=== PATIENT | female | born 1945 | race Caucasian/White ===

== ENCOUNTER → 2017-03-12 | Outpatient (CLI) | payer OTHER ==
[~2017-03-12] MED LIST: ADVIN25050 INH; ALPR-411 PO; AREDS PO; ASPI325T39 PO; CALC600T9 PO; CLR10 PO; GLIP-199 PO; LIVALO PO; LOSARTAN PO; REPA2TAB13 PO; TRIA1SPR4 NAE; VNTHFA/IN INH
--- NOTE | 2017-03-13 09:05 | MAMMOGRAPHY REPORT ---
BILATERAL DIGITAL SCREENING MAMMOGRAM WITH CAD: 03/12/2017 CLINICAL HISTORY: Routine screening. Patient has no complaints. TECHNIQUE: Current study was also evaluated with a Computer Aided Detection (CAD) system. Bilateral CC and MLO views were obtained. COMPARISON: Prior outside mammograms dated 01/23/2016, 01/02/2015, 09/27/2013, 04/13/2013, 03/10/2013, 2011 from [facility]. BREAST COMPOSITION: There are scattered areas of fibroglandular density in both breasts. FINDINGS: There is a newly visualized possible round 10 mm mass within the left breast at 12:00, for which spot compression tomosynthesis views and possible breast ultrasound are recommended for furthe r evaluation. This may represent a cyst. The remainder of both breasts are stable compared to prior exams, without suspicious masses, calcific ations, or areas of architectural distortion noted. Bilateral benign-appearing calcifications are no t significantly changed. A biopsy marker clip is again noted within the left upper outer quadrant. Bilateral asymmetries are stable. IMPRESSION: ACR BI-RADS CATEGORY 0: INCOMPLETE EVALUATION: NEED ADDITIONAL IMAGING EVALUATION Left 12:00 breast mass, for which additional imaging evaluation is recommended. The patient will be called to schedule an appointment. Approximately 10% of breast cancers are not detected with mammography. A negative mammographic report should not delay biopsy if a clinically suggestive mass is present. Sherita Almonte M.D. /:03/13/2017 07:39:35 Food Sampler: Yara SOSA(R)(Tato)(BD), [facility] letter sent: Addl Imaging 0 BI-RADS Code: ACR BI-RADS Category 0: Incomplete Evaluation: Need Additional Imaging Evaluation
== END | disposition home or self-care (01) ==
LOC: C.MAMM 13:29
PROVIDERS: ATTEND Family Medicine
DX: Z12.31 Encounter for screening mammogram for malignant neoplasm of breast (principal); N63 Unspecified lump in breast

== ENCOUNTER → 2017-03-19 | Day surgery (SDC) | payer OTHER ==
[2017-03-13 08:15] VITALS: BMI 29.0
[~2017-03-19] VITALS: Ht 165.1 cm; Wt 79.5 kg
[~2017-03-19] MED LIST changes: +LIDOCAINE HCL 2% 2 ML VIAL (20MG/ML) ONE; +PROPOFOL IV EMULSION 10 MG/ML 20 ML VIAL IV ONE; +REPA2TAB12 PO; -REPA2TAB13 PO; +SODIUM CHLORIDE 0.9% 500ML 500 ML IV ONE
[2017-03-19 07:57] VITALS: Ht 165.1 cm; Wt 79.5 kg
--- NOTE | 2017-03-19 08:46 | Endo History and Physical ---
History & Physical Date of Service: Mar 19, 2017. Chief Complaint: 5 year follow-up colonoscopy Referring Physician: dr. Griselda Howard History of Present Illness 71 yo CF who presents for colonoscopy secondary to history of colon polyps. Past Surgical History Hx Cardiac Surgery: No Hx Internal Defibrillator: No Hx Abdominal Surgery: Yes (GB SURG) Hx of Implantable Prosthesis: No Hx Post-Op Nausea and Vomiting: No Hx Cancer Surgery: No Hx Thoracic Surgery: No Hx Orthopedic: Yes (R TKA, L TKA) Family History None Social History Smoking Status: Never Smoker Hx Substance Use: No Hx Alcohol Use: No Allergies Coded Allergies: Atorvastatin (Verified Allergy, Unknown, MUSCLE CRAMPS,ACHES, 03/19/17) Food (Verified Allergy, Unknown, SEASONED BREADING ON FOOD-EYES SWELLED SHUT,THROAT SWELLING, 03/19/17) Penicillins (Verified Allergy, Unknown, HIVES, 03/19/17) Current Medications Reported Home Medications Medications Dose Route/Sig Max Daily Dose Days Date Category Calcium + D (Calcium Carbonate-Vitamin D) 1 Tab Tab 1 Tab PO BID 03/13/17 Reported [Areds] 1 Tab PO BID 03/13/17 Reported Nasacort Allergy 24Hr (Triamcinolone Acetonide (Nasal) 55 Mcg/Act Spr 2 Sprays BAKARI BID 03/13/17 Reported Advair Diskus 250-50 Mcg/Dose (Fluticasone Prop/Salmeterol) 14 Puff/1 Inhaler Aerp 2 Puffs INH BID 03/13/17 Reported Ventolin Hfa (Albuterol) 200 Puffs/15200 Mcg Aers 2 Puffs INH Q6H PRN 03/13/17 Reported Aspirin Ec (Aspirin) 325 Mg Tab 325 Mg PO QAM 03/13/17 Reported [Livalo] 1 Mg PO HS 03/13/17 Reported [Losartan] 50 Mg PO QAM 03/13/17 Reported Claritin (Loratadine) 10 Mg Tab 10 Mg PO QAM 03/13/17 Reported Prandin (Repaglinide) 2 Mg Tab 2 Mg PO AC 03/13/17 Reported Glipizide Er (Glipizide) 10 Mg Tab 1 Tab PO BID 90 03/13/17 Reported Vital Signs Weight (Kilograms): 79.55 Height (Feet): 5 Height (Inches): 5 Date Time Temp Pulse Resp B/P (MAP) Pulse Ox O2 Delivery O2 Flow Rate FiO2 03/19/17 08:11 36.6 66 20 140/77 (98) 96 Room Air Physical Exam General Appearance: WD/WN, no apparent distress Respiratory/Chest: Auscultation: breath sounds normal Cardiovascular: Heart Auscultation: RRR Abdomen: Bowel Sounds: normal Inspection & Palpation: soft, non-distended, no tenderness, guarding & rebound Assessment and Plan Assessment: 71 yo CF who presents for colonoscopy secondary to history of colon polyps. Plan: Proceed with colonoscopy
--- NOTE | 2017-03-19 09:19 | GI REPORT ---
Procedure Date: 03/19/2017 8:17 AM Procedure: Colonoscopy Indications: High risk colon cancer surveillance: Personal history of colonic polyps Medicines: Monitored Anesthesia Care Complications: No immediate complications. Estimated Blood Loss: Estimated blood loss: none. Procedure: Pre-Anesthesia Assessment: - Prior to the procedure, a History and Physical was performed, and patient medications and allergies were reviewed. The patient's tolerance of previous anesthesia was also reviewed. The risks and benefits of the procedure and the sedation options and risks were discussed with the patient. All questions were answered, and informed consent was obtained. Prior Anticoagulants: The patient has taken aspirin, last dose was 5 days prior to procedure. ASA Grade Assessment: II - A patient with mild systemic disease. After reviewing the risks and benefits, the patient was deemed in satisfactory condition to undergo the procedure. After I obtained informed consent, the scope was passed under direct vision. Throughout the procedure, the patient's blood pressure, pulse, and oxygen saturations were monitored continuously. The scope was introduced through the anus and advanced to the terminal ileum. The colonoscopy was performed without difficulty. The patient tolerated the procedure well. The quality of the bowel preparation was good. The terminal ileum, ileocecal valve, appendiceal orifice, and rectum were photographed. Findings: A 3 mm polyp was found in the cecum. The polyp was sessile. The polyp was removed with a cold biopsy forceps. Resection and retrieval were complete. A 5 mm polyp was found in the sigmoid colon. The polyp was sessile. The polyp was removed with a hot snare. Resection and retrieval were complete. Multiple small-mouthed diverticula were found in the sigmoid colon. Non-bleeding internal hemorrhoids were found during retroflexion. The hemorrhoids were small. Impression: - One 3 mm polyp in the cecum, removed with a cold biopsy forceps. Resected and retrieved. - One 5 mm polyp in the sigmoid colon, removed with a hot snare. Resected and retrieved. - Diverticulosis in the sigmoid colon. - Non-bleeding internal hemorrhoids. Recommendation: - Resume previous diet. - Continue present medications. - Repeat colonoscopy for surveillance based on pathology results. - Return to primary care physician as previously scheduled. Koby Maynard DO 03/19/2017 9:19:25 AM This report has been signed electronically. Note Initiated On: 03/19/2017 8:17 AM I attest to the content of the Intraoperative Record and orders documented therein, exceptions below
--- NOTE | 2017-03-19 09:21 | Discharge Instructions ---
Endoscopy Patient Instructions Date / Procedure(s) Performed Mar 19, 2017. Colonoscopy Allergy Information Coded Allergies: Atorvastatin (Verified Allergy, Unknown, MUSCLE CRAMPS,ACHES, 03/19/17) Food (Verified Allergy, Unknown, SEASONED BREADING ON FOOD-EYES SWELLED SHUT,THROAT SWELLING, 03/19/17) Penicillins (Verified Allergy, Unknown, HIVES, 03/19/17) Discharge Date / Findings Mar 19, 2017. Colon polyps Diverticulosis Internal hemorrhoids Medication Instructions Stopped Medication(s): stopped asa told 5 days before OK to resume all medications today as prescribed Reported Home Medications Medications Dose Route/Sig Max Daily Dose Days Date Category Calcium + D (Calcium Carbonate-Vitamin D) 1 Tab Tab 1 Tab PO BID 03/13/17 Reported [Areds] 1 Tab PO BID 03/13/17 Reported Nasacort Allergy 24Hr (Triamcinolone Acetonide (Nasal) 55 Mcg/Act Spr 2 Sprays BAKARI BID 03/13/17 Reported Advair Diskus 250-50 Mcg/Dose (Fluticasone Prop/Salmeterol) 14 Puff/1 Inhaler Aerp 2 Puffs INH BID 03/13/17 Reported Ventolin Hfa (Albuterol) 200 Puffs/95748 Mcg Aers 2 Puffs INH Q6H PRN 03/13/17 Reported Aspirin Ec (Aspirin) 325 Mg Tab 325 Mg PO QAM 03/13/17 Reported [Livalo] 1 Mg PO HS 03/13/17 Reported [Losartan] 50 Mg PO QAM 03/13/17 Reported Claritin (Loratadine) 10 Mg Tab 10 Mg PO QAM 03/13/17 Reported Prandin (Repaglinide) 2 Mg Tab 2 Mg PO AC 03/13/17 Reported Glipizide Er (Glipizide) 10 Mg Tab 1 Tab PO BID 90 03/13/17 Reported Provider Instructions Activity Restrictions - No exercising or heavy lifting for 24 hours. - Do not drink alcohol the day of the procedure. - Do not drive a car or operate machinery until the day after the procedure. - Do not make any important decisions or sign important papers in 24 hours after the procedure. Following Day: - Return to full activity which may include returning to work/school. Diet Start your diet with liquids and light foods (jello, soup, juice, toast). Then eat your usual diet if not nauseated. Treatment For Common After Affects For mild abdominal pain, bloating, or excessive gas: - Rest - Eat lightly - Lie on right side Follow-Up Information Follow-up with dr. Griselda Howard as scheduled Anesthesia Information What You Should Know You have had a procedure that required some medicine to reduce anxiety and discomfort. This treatment is called moderate sedation. After receiving the treatment, you may be sleepy, but you will be able to breathe on your own. The effects of the treatment may last for several hours. Follow these instructions along with Activity/Diet recommendations noted above: * Do NOT do anything where dizziness or clumsiness would be dangerous. * Rest quietly at home today, then you can be up and about tomorrow. * Have a responsible person stay with you the rest of today. * You may have had an I.V. today. If so, you may take the dressing off later today. Recommendations Call your doctor if: * Trouble breathing * Continuous vomiting for more than 24 hours * Temperature above 101 degrees * Severe abdominal pain or bloating * Pain not relieved by pain medicine ordered * There is increased drainage or redness from any incision * A large amount of rectal bleeding greater than 2-3 tablespoons. (If you had a polyp/s removed or have hemorrhoids, a small amount of blood - from the rectum is to be expected.) * You have any unanswered questions or concerns. IN THE EVENT OF A SERIOUS EMERGENCY, GO TO THE NEAREST EMERGENCY ROOM Your discharge instructions were prepared by provider Koby Maynard. Patient Instructions Signature Page Alexa Cristina Patient (or Guardian) Signature/Date: I have read and understand the instructions given to me by my caregivers. Caregiver/RN/Doctor Signature/Date: The above-named patient and/or guardian has received patient instructions on this date. + Original Patient Signature Page (only) stays with chart. Please make copy for patient.
[2017-03-19 09:40] VITALS: BP 128/84; PULSE 64; O2SAT 98
--- NOTE | 2017-03-19 10:07 | Anesthesiology Progress Note ---
Anesthesia Post Op Note Date & Time Mar 19, 2017 at 10:07 Vital Signs Pain Intensity: 0 Vital Signs Past 12 Hours Date Time Temp Pulse Resp B/P (MAP) Pulse Ox O2 Delivery O2 Flow Rate FiO2 03/19/17 09:40 64 20 128/84 (99) 98 Room Air 03/19/17 09:25 73 20 123/76 (92) 95 Room Air 03/19/17 09:10 75 16 101/56 (71) 94 Room Air 03/19/17 08:11 36.6 66 20 140/77 (98) 96 Room Air Notes Mental Status: alert / awake / arousable, participated in evaluation Pt Amnestic to Procedure: Yes Nausea / Vomiting: adequately controlled Pain: adequately controlled Airway Patency, RR, SpO2: stable & adequate BP & HR: stable & adequate Hydration State: stable & adequate Anesthetic Complications: no major complications apparent
== END | disposition home or self-care (01) ==
LOC: C.GI 07:41
PROVIDERS: ATTEND Internal Medicine
DX: Z12.11 Encounter for screening for malignant neoplasm of colon (principal); D12.5 Benign neoplasm of sigmoid colon; K57.30 Diverticulosis of large intestine without perforation or abscess without bleeding; K64.8 Other hemorrhoids; Z87.19 Personal history of other diseases of the digestive system; Z90.49 Acquired absence of other specified parts of digestive tract; Z96.653 Presence of artificial knee joint, bilateral; Z79.82 Long term (current) use of aspirin; E11.9 Type 2 diabetes mellitus without complications

== ENCOUNTER → 2017-03-21 | Outpatient (CLI) | payer OTHER ==
[~2017-03-21] MED LIST changes: -ALPR-411 PO; -LIDOCAINE HCL 2% 2 ML VIAL (20MG/ML) ONE; -PROPOFOL IV EMULSION 10 MG/ML 20 ML VIAL IV ONE; -REPA2TAB12 PO; +REPA2TAB13 PO; -SODIUM CHLORIDE 0.9% 500ML 500 ML IV ONE
--- NOTE | 2017-03-31 09:12 | MAMMOGRAPHY REPORT ---
UNILATERAL LEFT DIGITAL DIAGNOSTIC MAMMOGRAM TOMOSYNTHESIS AND TARGETED LEFT ULTRASOUND: 03/21/2017 CLINICAL HISTORY: Callback from screening mammogram for left breast mass. TECHNIQUE: Breast tomosynthesis in addition to standard 2D mammography was performed. Spot compress ion left CC and MLO 2-D and tomosynthesis images were obtained. COMPARISON: Comparison is made to exams dated: 03/12/2017 mammogram - [facility], mammogram, 01/02/2015 mammogram, 09/27/2013 mammogram, 04/13/2013 mammogram, and 03/10/2013 [facility]og [facility]. BREAST COMPOSITION: There are scattered areas of fibroglandular density in the left breast. FINDINGS: Spot compression views demonstrate a persistent oval partially circumscribed and partially obscured 10 mm mass in the left breast at 12:00, best seen on the cc tomosynthesis images. Targeted ultrasound was performed of the left 12:00 breast in the region of the mammographic mass. I n the left breast at 12:00, 4 cm from the nipple, there is an oval anechoic circumscribed mass which measures 7 x 9 x 3 mm. This corresponds with the mammographic mass and is consistent with a benign c yst. Incidentally noted is mild duct ectasia in the left subareolar breast. IMPRESSION: ACR BI-RADS CATEGORY 2: BENIGN, TARGETED ULTRASOUND ACR BI-RADS CATEGORY 2: BENIGN The mammographic mass corresponds with a benign 9 mm simple cyst in the left breast at 12:00 on ultra sound. There is no mammographic or targeted sonographic evidence of malignancy. A 1 year screening m ammogram is recommended. The patient has been verbally notified of the results. Approximately 10% of breast cancers are not detected with mammography. A negative mammographic report should not delay biopsy if a clinically suggestive mass is present. Sherita Almonte M.D. /:03/21/2017 10:45:59 Able Seaman: Verito Davis, [facility] letter sent: Normal 1/2 BI-RADS Code: ACR BI-RADS Category 2: Benign Ultrasound BI-RADS: ACR BI-RADS Category 2: Benign
== END | disposition home or self-care (01) ==
LOC: C.MAMM 10:10
PROVIDERS: ATTEND Family Medicine
DX: N60.02 Solitary cyst of left breast (principal)

== ENCOUNTER → 2017-11-18 | Day surgery (SDC) | payer OTHER ==
[2017-10-21 10:43] VITALS: Ht 162.6 cm; Wt 79.5 kg
[~2017-11-18] VITALS: Ht 162.6 cm; Wt 79.5 kg
[~2017-11-18] MED LIST changes: +500ML BSS 0.3ML EPI 1:1000PF IRRIG ONE; +ACETAMINOPHEN 325 MG TAB PO PRN; +AMVISC PLUS 0.8ML SYRINGE INT OCU ONE; -AREDS PO; +ATROPINE SULFATE 0.1 MG/ML 5ML SYR IV PRN; +BSS FLUSH ONE; +CALC500C70 PO; -CALC600T9 PO; -CLR10 PO; +DULA1INJ SC; +EpHEDrine SULFATE INJ 50 MG/ML AMP IV PRN; +EpINEphrine INJ 1MG/ML AMP 1 MG/ML AMP ONE; -GLIP-199 PO; +LACTATED RINGER'S 1000ML 500 ML IV SCH; +LIDOCAINE 3.5% OPH GEL PER APPLICATION CHARGE ONE; +LIDOCAINE HCL 1% MPF 2 ML VIAL ONE; -LIVALO PO; +LORA5TAB3 PO; +LOSA50TA6 PO; -LOSARTAN PO; +MIDAZOLAM HCL 1 MG/ML 2ML VIAL ONE; +MULTCAP33 PO; +MULTTAB58 PO; +NAPR1CAP12 PO; +OMEG10007 PO; +PITA1TAB PO; +POVIDONE-IODINE OP SOLN 30 ML BTL ONE; +PROPARACAINE 0.5% OP SOLN PER DROP CHARGE OPR SCH; -REPA2TAB13 PO; +TOBRAMYCIN/DEXAMETHASONE OPH OINT PER APPLN CHARGE ONE
[2017-11-18] MEDS: PHENYLEPHRINE HCL 2.5% OP SOLN PER DROP CHARGE OPR SCH ×2 (08:21→08:26)
[2017-11-18] MEDS: TROPICAMIDE 1% OP SOLN PER DROP CHARGE OPR SCH ×2 (08:22→08:27)
[2017-11-18] MEDS: CYCLOPENTOLATE HCL 1% OP SOLN PER DROP CHARGE OPR SCH ×2 (08:23→08:28)
[2017-11-18] MEDS: KETOROLAC 0.5% OP SOLN PER DROP CHARGE OPR SCH ×2 (08:24→08:29)
[2017-11-18] MEDS: GATIFLOXACIN OP SOLN PER DROP CHARGE OPR SCH ×2 (08:25→08:35)
--- NOTE | 2017-11-18 08:44 | History & Physical Bridge - SC ---
H&P Re-Evaluation Bridge Note: I have examined the patient, reviewed the History & Physical and in the interval since the performance of the History & Physical I have noted the following changes of clinical significance: No changes noted
--- NOTE | 2017-11-18 09:19 | [facility] Operative Report ---
Operative Report Date of Service Nov 18, 2017. Operative Report 1. PREOPERATIVE DIAGNOSIS: Cataract of the right eye. 2. POSTOPERATIVE DIAGNOSIS: Same. 3. PROCEDURE: Phacoemulsification with intraocular lens implantation of the right eye. SURGEON: Dr. Rodrigo Pabon. ANESTHESIA: Topical Lidocaine gel, 1% Non- Preserved intracameral Lidocaine, and monitored intravenous sedation. INDICATIONS FOR THE PROCEDURE: The patient is a 71 - year-old female with a history of cataract of the right eye causing significant visual impairment. The details of the proposed procedure were explained to the patient who asked appropriate questions and following discussion of all risks, benefits and alternatives agreed to have the procedure done. 4. OPERATION AND FINDINGS: DESCRIPTION OF PROCEDURE: After informed consent was obtained, the patient was brought to the Operating Room at the [facility]. The patient was placed in a supine position and then the right eye was prepped and draped in the usual sterile fashion for intraocular surgery. A drop of topical Lidocaine gel was placed in the operative eye. A wire lid speculum was then placed in the fornices. A corneal paracentesis was then created temporally. The Non-Preserved Lidocaine was then instilled into the anterior chamber. The anterior chamber was then pressurized with viscoelastic. A 2.0 mm clear corneal incision was then created temporally. A cystotome was inserted into the anterior chamber and used to create a tear in the anterior lens capsule. This capsular tear was then used to create a small flap and the flap was dragged in a counterclockwise direction in order to create a continuous curvilinear capsulorrhexis. Hydrodissection was accomplished with balanced salt solution. Phacoemulsification of the lens nucleus was then performed in a standard [id number] technique. The phaco time was 18 seconds with an average power of 9 %. The remaining cortical material was removed using irrigation aspiration. The capsular bag was then filled with viscoelastic. A Bausch [employer] Lomb MI60L +21.5 diopters lens was then loaded into the injector and injected into the capsular bag. The remaining viscoelastic was removed with the irrigation aspiration handpiece. The wound was hydrated and then checked and found to be watertight. The intraocular pressure was checked and found to be adequate. The wire lid speculum was removed and the patient's face was cleaned and dried. TobraDex ointment was placed in the inferior fornix. The patient was discharged to the Recovery Room having tolerated the procedure well. There were no complications. The patient will be seen tomorrow in the office for follow-up. I attest to the content of the Intraoperative Record and any orders documented therein. Any exceptions are noted below.
--- NOTE | 2017-11-18 09:20 | Discharge Instructions-SurgCtr ---
Discharge Instructions Date of Service Nov 18, 2017. Visit Reason for Visit: Cataract Right Eye Discharge Discharge Diagnosis / Problem: cataract Discharge Goals Goal(s): Improve function Activity Recommendations Activity Limitations: per Instructions/Follow-up section Anesthesia . Post Anesthesia Instructions: If you have had General Anesthesia or IV Sedation: * Do not drive today. * Resume driving when surgeon permits. * Do not make important decisions or sign legal documents today. * Call surgeon for: 1. Temperature elevations greater than 101 degrees F. 2. Uncontrollable pain. 3. Excessive bleeding. 4. Persistent nausea and vomiting. 5. Medication intolerance (nausea, vomiting or rash). * For nausea and vomiting use only clear liquids such as: tea, soda, bouillon until nausea subsides, then gradually increase diet as tolerated. * If you have any concerns or questions, call your surgeon's office. If physician is unavailable and it is an emergency, call 911 or go to the nearest emergency room. . Diet Recommendations Home Diet: resume previous diet Procedures Procedures Performed: Right Cataract Phacoemulsification With Intraocular Lens Implant Pending Studies Studies pending at discharge: no Medical Emergencies . Who to Call and When: Medical Emergencies: If at any time you feel your situation is an emergency, please call 911 immediately. . Non-Emergent Contact Non-Emergency issues call your: Local [employer] Tanker Driver . . "Provider Documentation" section prepared by Rodrigo Pabon. .
[2017-11-18 09:21] VITALS: TEMP 36.5
--- NOTE | 2017-11-18 09:24 | Anesthesia Progress Nt - [facility] ---
Anesthesia Post Op Note Date & Time Nov 18, 2017 at 09:24 Vital Signs Pain Intensity: 0 Vital Signs Past 12 Hours Date Time Temp Pulse Resp B/P (MAP) Pulse Ox O2 Delivery O2 Flow Rate FiO2 11/18/17 08:12 36.8 64 18 160/84 (109) 95 Room Air Notes Mental Status: alert / awake / arousable, participated in evaluation Pt Amnestic to Procedure: Yes Nausea / Vomiting: adequately controlled Pain: adequately controlled Airway Patency, RR, SpO2: stable & adequate BP & HR: stable & adequate Hydration State: stable & adequate Anesthetic Complications: no major complications apparent
[2017-11-18 09:55] VITALS: BP 168/84; PULSE 60; O2SAT 97
== END | disposition home or self-care (01) ==
LOC: X.SURG 07:34
PROVIDERS: ATTEND Ophthalmology
DX: H26.9 Unspecified cataract (principal); E11.65 Type 2 diabetes mellitus with hyperglycemia; E78.2 Mixed hyperlipidemia; I10 Essential (primary) hypertension; J45.909 Unspecified asthma, uncomplicated; Z86.718 Personal history of other venous thrombosis and embolism; Z79.899 Other long term (current) drug therapy; Z79.82 Long term (current) use of aspirin; Z79.84 Long term (current) use of oral hypoglycemic drugs

== ENCOUNTER → 2017-12-02 | Day surgery (SDC) | payer OTHER ==
[2017-11-20 10:48] VITALS: Ht 162.6 cm; Wt 79.5 kg
[~2017-12-02] VITALS: Ht 162.6 cm; Wt 79.5 kg
[~2017-12-02] MED LIST changes: +OCUCOAT 1 ML SOLN IO ONE; +PROPARACAINE 0.5% OP SOLN PER DROP CHARGE OPL SCH; -PROPARACAINE 0.5% OP SOLN PER DROP CHARGE OPR SCH
[2017-12-02] MEDS: PHENYLEPHRINE HCL 2.5% OP SOLN PER DROP CHARGE OPL SCH ×2 (09:09→09:17)
[2017-12-02] MEDS: TROPICAMIDE 1% OP SOLN PER DROP CHARGE OPL SCH ×2 (09:12→09:18)
[2017-12-02] MEDS: CYCLOPENTOLATE HCL 1% OP SOLN PER DROP CHARGE OPL SCH ×2 (09:14→09:19)
[2017-12-02] MEDS: KETOROLAC 0.5% OP SOLN PER DROP CHARGE OPL SCH ×2 (09:15→09:21)
[2017-12-02] MEDS: GATIFLOXACIN OP SOLN PER DROP CHARGE OPL SCH ×2 (09:16→09:28)
--- NOTE | 2017-12-02 10:12 | [facility] Operative Report ---
Operative Report Date of Service Dec 02, 2017. Operative Report 1. PREOPERATIVE DIAGNOSIS: Cataract of the left eye. 2. POSTOPERATIVE DIAGNOSIS: Same. 3. PROCEDURE: Phacoemulsification with intraocular lens implantation of the left eye. SURGEON: Dr. Rodrigo Pabon. ANESTHESIA: Topical Lidocaine gel, 1% Non- Preserved intracameral Lidocaine, and monitored intravenous sedation. INDICATIONS FOR THE PROCEDURE: The patient is a 72 - year-old female with a history of cataract of the left eye causing significant visual impairment. The details of the proposed procedure were explained to the patient who asked appropriate questions and following discussion of all risks, benefits and alternatives agreed to have the procedure done. 4. OPERATION AND FINDINGS: DESCRIPTION OF PROCEDURE: After informed consent was obtained, the patient was brought to the Operating Room at the [facility]. The patient was placed in a supine position and then the left eye was prepped and draped in the usual sterile fashion for intraocular surgery. A drop of topical Lidocaine gel was placed in the operative eye. A wire lid speculum was then placed in the fornices. A corneal paracentesis was then created temporally. The Non-Preserved Lidocaine was then instilled into the anterior chamber. The anterior chamber was then pressurized with viscoelastic. A 2.0 mm clear corneal incision was then created temporally. A cystotome was inserted into the anterior chamber and used to create a tear in the anterior lens capsule. This capsular tear was then used to create a small flap and the flap was dragged in a counterclockwise direction in order to create a continuous curvilinear capsulorrhexis. Hydrodissection was accomplished with balanced salt solution. Phacoemulsification of the lens nucleus was then performed in a standard [id number] technique. The phaco time was 17 seconds with an average power of 14 %. The remaining cortical material was removed using irrigation aspiration. The capsular bag was then filled with viscoelastic. A Bausch & Lomb MI60L +22.0 diopters lens was then loaded into the injector and injected into the capsular bag. The remaining viscoelastic was removed with the irrigation aspiration handpiece. The wound was hydrated and then checked and found to be watertight. The intraocular pressure was checked and found to be adequate. The wire lid speculum was removed and the patient's face was cleaned and dried. TobraDex ointment was placed in the inferior fornix. The patient was discharged to the Recovery Room having tolerated the procedure well. There were no complications. The patient will be seen tomorrow in the office for follow-up. I attest to the content of the Intraoperative Record and any orders documented therein. Any exceptions are noted below.
--- NOTE | 2017-12-02 10:13 | Discharge Instructions-SurgCtr ---
Discharge Instructions Date of Service Dec 02, 2017. Visit Reason for Visit: Cataract Left Eye Discharge Discharge Diagnosis / Problem: cataract Discharge Goals Goal(s): Improve function Activity Recommendations Activity Limitations: per Instructions/Follow-up section Anesthesia . Post Anesthesia Instructions: If you have had General Anesthesia or IV Sedation: * Do not drive today. * Resume driving when surgeon permits. * Do not make important decisions or sign legal documents today. * Call surgeon for: 1. Temperature elevations greater than 101 degrees F. 2. Uncontrollable pain. 3. Excessive bleeding. 4. Persistent nausea and vomiting. 5. Medication intolerance (nausea, vomiting or rash). * For nausea and vomiting use only clear liquids such as: tea, soda, bouillon until nausea subsides, then gradually increase diet as tolerated. * If you have any concerns or questions, call your surgeon's office. If physician is unavailable and it is an emergency, call 911 or go to the nearest emergency room. . Diet Recommendations Home Diet: resume previous diet Procedures Procedures Performed: Left Cataract Phacoemulsification With Intraocular Lens Implant Pending Studies Studies pending at discharge: no Medical Emergencies . Who to Call and When: Medical Emergencies: If at any time you feel your situation is an emergency, please call 911 immediately. . Non-Emergent Contact Non-Emergency issues call your: Pin Drafter Operator . . "Provider Documentation" section prepared by Rodrigo Pabon. .
[2017-12-02 10:15] VITALS: TEMP 36.7
[2017-12-02 10:36] VITALS: BP 156/85; PULSE 70; O2SAT 97
--- NOTE | 2017-12-02 10:43 | Anesthesia Progress Nt - [facility] ---
Anesthesia Post Op Note Date & Time Dec 02, 2017 at 10:42 Vital Signs Vital Signs Past 12 Hours Date Time Temp Pulse Resp B/P (MAP) Pulse Ox O2 Delivery O2 Flow Rate FiO2 12/02/17 10:36 70 16 156/85 (108) 97 Room Air 12/02/17 10:15 36.7 67 16 139/74 (95) 95 Room Air 12/02/17 08:59 37.0 66 18 157/88 (111) 96 Room Air Notes Mental Status: alert / awake / arousable, participated in evaluation Pt Amnestic to Procedure: Yes Nausea / Vomiting: adequately controlled Pain: adequately controlled Airway Patency, RR, SpO2: stable & adequate BP & HR: stable & adequate Hydration State: stable & adequate Anesthetic Complications: no major complications apparent
== END | disposition home or self-care (01) ==
LOC: X.SURG 08:22
PROVIDERS: ATTEND Ophthalmology
DX: H26.9 Unspecified cataract (principal); E78.2 Mixed hyperlipidemia; E11.9 Type 2 diabetes mellitus without complications; I10 Essential (primary) hypertension; F41.9 Anxiety disorder, unspecified; E78.00 Pure hypercholesterolemia, unspecified; J44.9 Chronic obstructive pulmonary disease, unspecified; M19.90 Unspecified osteoarthritis, unspecified site; E66.9 Obesity, unspecified; Z86.718 Personal history of other venous thrombosis and embolism; Z79.82 Long term (current) use of aspirin; Z88.0 Allergy status to penicillin; Z88.8 Allergy status to other drugs, medicaments and biological substances; Z91.018 Allergy to other foods; Z90.49 Acquired absence of other specified parts of digestive tract; Z90.89 Acquired absence of other organs; Z96.653 Presence of artificial knee joint, bilateral; Z98.41 Cataract extraction status, right eye

== ENCOUNTER 2018-09-24 12:15 | Observation (INO) ==
[2018-09-24] MEDS ORDERED: ASPIRIN CHEW 324 MG PO STA (12:41)
[2018-09-24] MEDS ORDERED: SODIUM CHLORIDE 0.9% 500 ML IV SCH (12:45)
[2018-09-24] MEDS: NITROGLYCERIN SL 0.4 MG/TAB TAB SL PRN ×2 (12:46→13:15)
[2018-09-24 12:50] LABS: Basophils # (auto) 0.05 K/uL (0-0.2); Basophils % (auto) 0.5 %; Eosinophils # (auto) 0.32 K/uL (0-0.5); Eosinophils % (auto) 3.3 %; Hematocrit (blood only) 44.4 % (37-47); Hemoglobin 15.2 g/dL (12.0-16.0); Immature Granulocytes # (auto) 0.04 K/uL (0.00-0.02); Immature Granulocytes % (auto) 0.4 %; Lymphocytes # (auto) 2.83 K/uL (1.2-3.4); Lymphocytes % (auto) 28.9 %; Mean Corpuscular Hgb Conc 34.2 g/dL (32-36); Mean Corpuscular Volume 90.8 fL (80-100); Monocytes # (auto) 0.77 K/uL (0.11-0.59); Monocytes % (auto) 7.9 %; Neutrophils # (auto) 5.79 K/uL (1.4-6.5); Platelet Count 282 K/uL (130-400); RDW Coefficient of Variation 12.3 % (11.5-14.5); RDW Standard Deviation 40.5 fL (36.4-46.3); Red Blood Count 4.89 M/uL (4.2-5.4)
[2018-09-24 13:01] LABS: Blood Urea Nitrogen 13 mg/dl (7-18); Calcium 10.3 mg/dl (8.5-10.1); Carbon Dioxide 28 mmol/L (21-32); Chloride 100 mmol/L (98-107); Creatinine Clr Calc Pharmacy 68.8 ml/min; Est GFR (African American) 95.1; Est GFR (Non-African American) 82.1; Glucose 153 mg/dl (70-99); Potassium 3.7 mmol/L (3.5-5.1); Sodium 136 mmol/L (136-145)
[2018-09-24 13:03] LABS: Partial Thromboplastin Ratio 1.1; Partial Thromboplastin Time 27.3 Seconds (21.0-31.0); Prothrombin Time 10.3 Seconds (9.0-12.0)
[2018-09-24 13:06] LABS: Troponin I < 0.015 ng/ml (0-0.045)
--- NOTE | 2018-09-24 14:48 | XRay Report ---
XR chest 2V routine CLINICAL HISTORY: Chest pain. COMPARISON STUDY: No previous studies for comparison. FINDINGS: Incidental note is made of cholecystectomy clips. Lung volumes are normal. There is no pneu mothorax or pleural effusion. There is no consolidation or evidence for pulmonary edema. There is mil d cardiomegaly. There is a suspected old right humeral neck deformity. IMPRESSION: No acute cardiopulmonary findings. Electronically signed by: Karlos Membreno M.D. 09/24/2018 2:39 PM
--- NOTE | 2018-09-24 15:31 | History & Physical Report ---
Date of Service September 24, 2018 Assessment & Plan (1) Chest pain: History concerning for underlying cardiac pathology so patient being admitted for observation on telemetry - Serial cardiac enzymes - Repeat EKG in AM - Consult cardiology for possible inpatient stress tomorrow unless condition changes overnight - will make NPO after midnight (2) Asthma: Stable at present - pt reports breathing is at baseline - Continue Advair 250/50 2 puffs BID - PRN albuterol for SOB/wheezing (3) Dyslipidemia: - Check lipid panel in AM - Continue pitavastatin 1 mg QHS (4) Hx of deep venous thrombosis: - Continue aspirin 325 mg daily as taken at home - SubQ heparin and SCDs for DVT prophylaxis while admitted (5) HTN (hypertension): - Continue losartan for now and monitor BP (6) Diabetes: - Check A1c in AM - BSG ACHS - Hold home diabetic meds - will cover with SSI while admitted - Diabetic diet Plan: Plan - Susan Contreras PA-C: Patient seen and reviewed with collaborating physician, Dr. Diaz. Plan of care discussed and as outlined above. Follow enzymes and EKG - consider stress test if all negative. Daryl Contreras PA-C History of Present Illness Primary Care Provider: PCP - Stacy Rai This is a 72 y/o female with a history of HTN, dyslipidemia and DM who presents to the ED today with left-sided chest pain x 3-4 days, worse with exertion. Pt reports she started with left chest pressure and pain 3-4 days ago - at times the pain radiates into her left arm and left neck although not constantly. The pain is worse with exertion although incompletely relieved by rest. She does have associated dyspnea on exertion but no pain with inspiration, wheezing, orthopnea or PND. No palpitations or syncope. Denies peripheral edema. She denies ever have pain like this previously. No prior cardiac history or work- up that patient can recall. Her symptoms have been worsening in severity and she now has associated weakness, fatigue and dizziness so she came for evaluation in the ED. She reports a history of DVT in the late that was attributed to Premarin use - initially treated with warfarin but now maintained on aspirin 325 mg daily. Denies history of PE. No family history of cardiac disease although father of a "massive stroke" in his late 60s. Pt reports her diabetes is well-controlled on Trulicty and metformin although unsure when/ what her last A1c was. She attempts to remain active and exercise regularly although admits she has not done as well with this over the holidays. Allergies Allergy/AdvReac Type Severity Reaction Status Date / Time Penicillins Allergy Intermediate HIVES Verified 09/24/18 14:55 atorvastatin AdvReac Mild MUSCLE Verified 09/24/18 14:55 CRAMPS,ACHES Food Allergy Unknown SEASONED Uncoded 09/24/18 14:55 BREADING ON FOOD-EYES SWELLED SHUT,THROAT SWELLING Home Medications Home Medications Medication Instructions Recorded Confirmed Type albuterol sulfate [Ventolin HFA] 2 puff INHALATION Q6H PRN 09/24/18 09/24/18 History aspirin 325 mg PO QAM 09/24/18 09/24/18 History calcium carbonate-vitamin D3 1 tab PO BID 09/24/18 09/24/18 History [Os-Jaden 500 + D3] dulaglutide [Trulicity] 1.5 mg SUBCUT WK 09/24/18 09/24/18 History fluticasone-salmeterol [Advair 2 puff INHALATION BID 09/24/18 09/24/18 History Diskus] loratadine-pseudoephedrine 1 tab PO Q12H 09/24/18 09/24/18 History [Claritin-D 12 Hour] losartan 50 mg PO QAM 09/24/18 09/24/18 History metformin 1,000 mg PO BID 09/24/18 09/24/18 History multivitamin 1 cap PO QAM 09/24/18 09/24/18 History naproxen sodium [Aleve] 440 mg PO QAM PRN 09/24/18 09/24/18 History omega 8-qes-ulj-fish oil [Fish Oil] 1 cap PO QAM 09/24/18 09/24/18 History pitavastatin calcium [Livalo] 1 mg PO HS 09/24/18 09/24/18 History triamcinolone acetonide [Nasacort] 2 spray INTRANASAL BID 09/24/18 09/24/18 History vitamins A,C,B-ptxm-orqlel 1 cap PO BID 09/24/18 09/24/18 History [PreserVision AREDS] Past Med/Surg History Medical History Asthma (Chronic) Chronic lumbar pain (Chronic) Diabetes (Chronic) Dyslipidemia (Chronic) HTN (hypertension) (Chronic) 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 Landin ([facility]) Family History Father Stroke Other Family history non-contributory Social History marital status: Current Living Situation: Spouse current occupational status: retired Other Information That Helps Us Care for You: No Feels Safe at Home: Yes Safety Concerns: Feels Safe At This Time Smoking Status: Never smoker Hx Alcohol Use: Yes Alcohol type: other Alcohol Intake Frequency: holidays/ special occasions only Hx Substance Use: No Beliefs That Will Affect Care: None Preferred Language: Amharic Communication Ability: Effective Electrical Engineering Director Required: No Review of Systems All systems reviewed & are unremarkable except as noted in HPI & below Constitutional: + fatigue and + weakness; no fever, no chills and no sweats Eyes: no diplopia, not seeing flashes and no worsening vision Ear, Nose, Mouth, Throat: + dizziness; no nasal congestion, no nasal discharge, no sore throat and no dysphagia Respiratory: + dyspnea on exertion; no cough, no chest congestion, no change in sputum, no hemoptysis and no pain on inspiration Cardiovascular: + chest pain at rest, + chest pain with activity, + radiating jaw, neck or arm pain, + dyspnea on exertion and + lightheadedness; no orthopnea , no paroxysmal nocturnal dyspnea, no palpitations and no edema Gastrointestinal: no nausea, no vomiting, no change in bowel habits, no blood in stools and no melena History of occasional indigestion but current symptoms feel different than prior reflux Genitourinary (Female): no dysuria, no urinary frequency, no urinary hesitancy, no nocturia and no decreased urination Musculoskeletal: + back pain (chronic issue); no joint pain and no swelling Integumentary: no rash, no wounds and no yellowing of the skin Neurologic: no tingling, no numbness, no paresthesia, no seizure-like activity, no syncope and no headache(s) Hematologic / Lymphatic: + problem reported (History of DVT related to Premarin ~20 years ago - on aspirin 325 mg daily now) Physical Exam 2 Vital Signs (Past 24 Hours): Last Vital Signs Temp 36.7 C 09/24/18 12:24 Pulse 94 H 09/24/18 14:30 Resp 19 09/24/18 14:30 BP 137/86 09/24/18 13:31 Pulse Ox 96 09/24/18 14:30 Constitutional: WD/WN, vitals as above no acute distress Eyes: PERRL, conjunctivae normal, anicteric sclerae ENMT: external ear and nose normal, oropharynx normal Neck: trachea midline Respiratory: normal respiratory effort, lungs clear to auscultation no labored breathing and does not use accessory muscles Auscultation: no rales, no rhonchi and no wheezes Cardiovascular: Rate/Rhythm: regular rate Heart Sounds: no gallop, no murmur and no cardiac rub Vessels: no JVD Extremities: normal capillary refill; no calf tenderness and no edema Gastrointestinal (Abdomen): normal bowel sounds, soft, nontender, no hepatosplenomegaly Musculoskeletal: no cyanosis or clubbing, extremities motor strength 5/5 Skin: no rashes, warm and dry Psychiatric: A+Ox3, euthymic affect Results & Data Laboratory Results Laboratory Results - last 24 hr 09/24/18 09/24/18 09/24/18 12:30 12:30 12:30 WBC 9.80 RBC 4.89 Hgb 15.2 Hct 44.4 MCV 90.8 MCH 31.1 MCHC 34.2 RDW Std Deviation 40.5 RDW Coeff of Ghassan 12.3 Plt Count 282 MPV 9.0 Immature Gran % (Auto) 0.4 Neut % (Auto) 59.0 Lymph % (Auto) 28.9 [place] % (Auto) 7.9 Eos % (Auto) 3.3 Baso % (Auto) 0.5 Immature Gran # (Auto) 0.04 H Neut # (Auto) 5.79 Lymph # (Auto) 2.83 [place] # (Auto) 0.77 H Eos # (Auto) 0.32 Baso # (Auto) 0.05 PT 10.3 INR 1.0 APTT 27.3 PTT Ratio 1.1 D-Dimer 440 Sodium 136 Potassium 3.7 Chloride 100 Carbon Dioxide 28 Anion Gap 8.0 BUN 13 Creatinine 0.74 Est Cr Clr Drug Dosing 68.8 Est GFR ( Amer) 95.1 Est GFR (Non-Af Amer) 82.1 BUN/Creatinine Ratio 18.0 Glucose 153 H Calcium 10.3 H Troponin I < 0.015 Lipase 150 Diagnostic Findings Chest X-ray 09/24/18 - IMPRESSION: No acute cardiopulmonary findings. Medications Administered Nitroglycerin (Nitrostat) 0.4 mg SL UD PRN PRN Reason: Chest Pain Stop: 10/24/18 12:40 Last Admin: 09/24/18 13:15 Dose: 0.4 mg Admin: 09/24/18 12:46 Dose: 0.4 mg Discontinued Medications Aspirin (Aspirin) 324 mg PO NOW STA Stop: 09/24/18 12:42 Last Admin: 09/24/18 12:45 Dose: 324 mg Sodium Chloride (Nss) 500 mls @ 999 mls/hr IV .Q31M GUY Stop: 09/24/18 13:15 Last Infusion: 09/24/18 13:18 Dose: 0 mls/hr Admin: 09/24/18 12:46 Dose: 999 mls/hr Code Status & VTE Plan Code Status Full resuscitation as long as meaningful chance of recovery VTE Prophylaxis Plan VTE Prophylaxis will be ordered: Yes Supervising Physician Co-Signing Physician Notes I saw this patient with the physician legal administrative assistant, I participated in the history, physical, review of systems, and physical exam. I reviewed the medications with the patient and the physician legal administrative assistant and helped reconcile the medications. I helped take a detailed family and social history as well. I formulated the assessment and plan personally with the physician legal administrative assistant went over it with the patient. _ (1) Diabetes Diabetes mellitus complication status: without complication Diabetes mellitus mcc insulin use: without mcc use Diabetes mellitus type: type 2 Qualified Code(s): E11.9 - Type 2 diabetes mellitus without complications (2) Chest pain Chest pain type: unspecified Ischemic chest pain type: Qualified Code(s): R07.9 - Chest pain, unspecified (3) HTN (hypertension) Hypertension type: unspecified Qualified Code(s): I10 - Essential (primary) hypertension (4) Asthma Asthma complication type: uncomplicated Asthma persistence: unspecified Asthma severity: unspecified severity Qualified Code(s): J45.909 - Unspecified asthma, uncomplicated
[2018-09-24] MEDS ORDERED: GLUCOSE 10 TABS/TUBE PO PRN (16:34)
[2018-09-24] MEDS ORDERED: DEXTROSE 50% 50 ML SYRINGE IV PRN (16:34)
[2018-09-24] MEDS ORDERED: GLUCAGON FOR INJ 1 MG VIAL SQ PRN (16:34)
[2018-09-24] MEDS ORDERED: GLUCOSE 40% GEL 15 GM TUBE PO PRN (16:34)
[2018-09-24] MEDS ORDERED: CARBOHYDRATES FOR HYPOGLYCEMIA PO PRN (16:34)
[2018-09-24] MEDS ORDERED: ALBUTEROL HFA 8 GM INHALER INH PRN (16:34)
[2018-09-24] MEDS: INSULIN ASPART 100 UNITS/ML 3 ML PEN SC SCH ×2 (17:34→21:32)
--- NOTE | 2018-09-24 18:43 | Cardiology Consultation ---
Date of Consultation September 24, 2018 Assessment & Plan (1) Chest pain: Patient is a 72-year-old female cardiac risk factors of age hypertension hyperlipidemia type 2 diabetes mellitus presenting with concerning symptoms for angina pectoris patient personally concerned new onset left-sided chest discomfort radiating to left shoulder and arm. Initial enzymes and EKGs reflect no acute injury Recommendations: Serial cardiac enzymes are already ordered we will add topical nitrates. Echocardiogram ordered for a.m. Discussed with patient will need further risk stratification either through stress testing or proceeding directly to diagnostic cardiac catheterization studies in a.m. patient to be kept n.p.o. (2) Hypertension: History of Present Illness Reason for Consultation: Chest pain concerning for angina Attending Physician: Bogdan Espinal MD History of Present Illness Patient is a 72-year-old female without prior history of cardiac disease cardiac risk factors of hypertension, type 2 diabetes mellitus, hyperlipidemia currently on therapy who presents this admission noting several day history of heart heavy pressure pain radiating across the anterior precordial chest left shoulder and arm symptoms were associated with shortness of breath and were heavy enough to stop activity. She was strongly concerned regarding complaints as a new finding and no prior history of such. Presented to the ER for where initial EKG and cardiac enzymes revealed no acute injury. She is referred now for further evaluation. She denies any history of myocardial infarction angina congestive heart failure rheumatic fever scarlet fever renal or hepatic disease. Notes no history of TIA or stroke. Notes no cough hoarseness wheeze or hemoptysis. Notes no bleeding issues notes no melena hematochezia dysuria hematuria denies cough or hemoptysis. Appetite is generally good weight is been stable. Notes no change in vision or headaches. Takes medications faithfully and sleep disruption. Does have a history of chronic arthritis Allergies Allergy/AdvReac Type Severity Reaction Status Date / Time Penicillins Allergy Intermediate HIVES Verified 09/24/18 14:55 atorvastatin AdvReac Mild MUSCLE Verified 09/24/18 14:55 CRAMPS,ACHES Food Allergy Unknown SEASONED Uncoded 09/24/18 14:55 BREADING ON FOOD-EYES SWELLED SHUT,THROAT SWELLING Home Medications Home Medications Medication Instructions Recorded Confirmed Type albuterol sulfate [Ventolin HFA] 2 puff INHALATION Q6H PRN 09/24/18 09/24/18 History aspirin 325 mg PO QAM 09/24/18 09/24/18 History calcium carbonate-vitamin D3 1 tab PO BID 09/24/18 09/24/18 History [Os-Jaden 500 + D3] dulaglutide [Trulicity] 1.5 mg SUBCUT WK 09/24/18 09/24/18 History fluticasone-salmeterol [Advair 2 puff INHALATION BID 09/24/18 09/24/18 History Diskus] loratadine-pseudoephedrine 1 tab PO Q12H 09/24/18 09/24/18 History [Claritin-D 12 Hour] losartan 50 mg PO QAM 09/24/18 09/24/18 History metformin 1,000 mg PO BID 09/24/18 09/24/18 History multivitamin 1 cap PO QAM 09/24/18 09/24/18 History naproxen sodium [Aleve] 440 mg PO QAM PRN 09/24/18 09/24/18 History omega 3-uye-fvc-fish oil [Fish Oil] 1 cap PO QAM 09/24/18 09/24/18 History pitavastatin calcium [Livalo] 1 mg PO HS 09/24/18 09/24/18 History triamcinolone acetonide [Nasacort] 2 spray INTRANASAL BID 09/24/18 09/24/18 History vitamins A,C,Q-lqcw-uedvuh 1 cap PO BID 09/24/18 09/24/18 History [PreserVision AREDS] Patient History Medical History Asthma (Chronic) Chronic lumbar pain (Chronic) Diabetes (Chronic) Dyslipidemia (Chronic) HTN (hypertension) (Chronic) 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 Landin ([facility]) Family History Father Stroke Other Family history non-contributory Social History marital status: Current Living Situation: Spouse current occupational status: retired Other Information That Helps Us Care for You: No Feels Safe at Home: Yes Safety Concerns: Feels Safe At This Time Smoking Status: Never smoker Hx Alcohol Use: Yes Alcohol type: other Alcohol Intake Frequency: holidays/ special occasions only Hx Substance Use: No Beliefs That Will Affect Care: None Preferred Language: Belarusian Communication Ability: Effective Library Helper Required: No Review of Systems As per HPI and otherwise negative Physical Exam 2 Vital Signs (Past 24 Hours): Last Vital Signs Temp 36.9 C 09/24/18 17:10 Pulse 77 09/24/18 17:10 Resp 16 09/24/18 17:10 BP 176/80 H 09/24/18 17:10 Pulse Ox 97 09/24/18 17:10 Constitutional: WD/WN, vitals as above Eyes: + periorbital abnormality (Erythema) ENMT: external ear and nose normal, oropharynx normal Neck: trachea midline, no thyromegaly Respiratory: normal respiratory effort, lungs clear to auscultation Cardiovascular: RRR, no murmur, no edema Heart Sounds: no gallop Palpation: normal PMI Vessels: femoral pulses present; no carotid bruit and no abdominal aortic bruit Gastrointestinal (Abdomen): normal bowel sounds, soft, nontender, no hepatosplenomegaly Musculoskeletal: no cyanosis or clubbing, extremities motor strength 5/5 Chronic arthritic changes in the hands are present Neurologic: PERRL, EOMI, accommodation nl, no face palsy, no dysarthria Results & Data Laboratory Results Laboratory Results - last 24 hr 09/24/18 09/24/18 09/24/18 12:30 12:30 12:30 WBC 9.80 RBC 4.89 Hgb 15.2 Hct 44.4 MCV 90.8 MCH 31.1 MCHC 34.2 RDW Std Deviation 40.5 RDW Coeff of Ghassan 12.3 Plt Count 282 MPV 9.0 Immature Gran % (Auto) 0.4 Neut % (Auto) 59.0 Lymph % (Auto) 28.9 Yates % (Auto) 7.9 Eos % (Auto) 3.3 Baso % (Auto) 0.5 Immature Gran # (Auto) 0.04 H Neut # (Auto) 5.79 Lymph # (Auto) 2.83 Yates # (Auto) 0.77 H Eos # (Auto) 0.32 Baso # (Auto) 0.05 PT 10.3 INR 1.0 APTT 27.3 PTT Ratio 1.1 D-Dimer 440 Sodium 136 Potassium 3.7 Chloride 100 Carbon Dioxide 28 Anion Gap 8.0 BUN 13 Creatinine 0.74 Est Cr Clr Drug Dosing 68.8 Est GFR ( Amer) 95.1 Est GFR (Non-Af Amer) 82.1 BUN/Creatinine Ratio 18.0 Glucose 153 H POC Glucose Calcium 10.3 H Troponin I < 0.015 Lipase 150 09/24/18 09/24/18 16:39 17:15 WBC RBC Hgb Hct MCV MCH MCHC RDW Std Deviation RDW Coeff of Ghassan Plt Count MPV Immature Gran % (Auto) Neut % (Auto) Lymph % (Auto) Yates % (Auto) Eos % (Auto) Baso % (Auto) Immature Gran # (Auto) Neut # (Auto) Lymph # (Auto) Yates # (Auto) Eos # (Auto) Baso # (Auto) PT INR APTT PTT Ratio D-Dimer Sodium Potassium Chloride Carbon Dioxide Anion Gap BUN Creatinine Est Cr Clr Drug Dosing Est GFR ( Amer) Est GFR (Non-Af Amer) BUN/Creatinine Ratio Glucose POC Glucose 132 H Calcium Troponin I < 0.015 Lipase Diagnostic Findings EKG: Sinus rhythm with sinus arrhythmia with 1st degree A-V block Abnormal ECG No previous ECGs available _ (1) Chest pain Chest pain type: unspecified Ischemic chest pain type: Qualified Code(s): R07.9 - Chest pain, unspecified
[2018-09-24] MEDS: NITROGLYCERIN 2% OINTMENT 30GM TUBE EXT SCH (19:15)
[2018-09-24] MEDS: ACETAMINOPHEN 325 MG TAB PO PRN (19:16)
[2018-09-24] MEDS: FLUTICASONE/SALMETEROL 250/50 (ADVAIR) 14 PUFF/1 INHALER INH SCH (19:20)
[2018-09-24] MEDS: TRIAMCINOLONE ACET NASAL SPRAY 10.8ML BTL SCH (19:21)
[2018-09-24] MEDS: HEPARIN SOD 5,000 UNIT/0.5 ML VIAL SQ SCH (19:21)
--- NOTE | 2018-09-24 19:22 | Emergency Department Note ---
Entered by Kyung Schumacher acting as a scribe for Amador Swain History of Present Illness General Chief complaint: Chest Pain Stated complaint: CHEST PAINS,PAIN DOWN L ARM Time Seen by Provider: 09/24/18 12:30 Source: patient History of Present Illness Onset (ago): day(s) (a few days ago) Location: chest Radiation: extremity (left arm and shoulder) Pain Consistency: + other (worsening) Maximum Pain Intensity: 6 Current Pain Intensity: 6 Quality: + other (pressure) Associated symptoms: + denies other symptoms (hemoptysis, leg pain, diarrhea), + cough and + loss of appetite; no nausea/vomiting The patient is a 72 year old female who presents to the Emergency Room with complaints of worsening chest pain starting a few days ago. The patient states that she noticed a lot of pressure over the left side of her chest that radiates out of the top of her shoulder and down her arm. She states that for the past few days it has been intermittent so she assumed it was just indigestion, but today she woke up with it and it hasnt passed. She currently rates her pain as a 6/10 in severity. The patient complains of a cough and loss of appetite. The patient notes a history of a DVT in her left leg, diabetes and hypertension. She notes that she is only on an Aspirin daily, but denies taking any other blood thinners. The patient denies recent travel, hemoptysis, use of hormone pills/creams, recent leg pain, nausea, vomiting, diarrhea, a history of hyperlipidemia, and taking any Nitroglycerin or Aspirin today. Home Medications Home Medications Medication Instructions Recorded Confirmed Type albuterol sulfate [Ventolin HFA] 2 puff INHALATION Q6H PRN 09/24/18 09/24/18 History aspirin 325 mg PO QAM 09/24/18 09/24/18 History calcium carbonate-vitamin D3 1 tab PO BID 09/24/18 09/24/18 History [Os-Jaden 500 + D3] dulaglutide [Trulicity] 1.5 mg SUBCUT WK 09/24/18 09/24/18 History fluticasone-salmeterol [Advair 2 puff INHALATION BID 09/24/18 09/24/18 History Diskus] loratadine-pseudoephedrine 1 tab PO Q12H 09/24/18 09/24/18 History [Claritin-D 12 Hour] losartan 50 mg PO QAM 09/24/18 09/24/18 History metformin 1,000 mg PO BID 09/24/18 09/24/18 History multivitamin 1 cap PO QAM 09/24/18 09/24/18 History naproxen sodium [Aleve] 440 mg PO QAM PRN 09/24/18 09/24/18 History omega 8-yir-vdm-fish oil [Fish Oil] 1 cap PO QAM 09/24/18 09/24/18 History pitavastatin calcium [Livalo] 1 mg PO HS 09/24/18 09/24/18 History triamcinolone acetonide [Nasacort] 2 spray INTRANASAL BID 09/24/18 09/24/18 History vitamins A,C,C-fpys-cigfrh 1 cap PO BID 09/24/18 09/24/18 History [PreserVision AREDS] Allergies Allergy/AdvReac Type Severity Reaction Status Date / Time Penicillins Allergy Intermediate HIVES Verified 09/24/18 14:55 atorvastatin AdvReac Mild MUSCLE Verified 09/24/18 14:55 CRAMPS,ACHES Food Allergy Unknown SEASONED Uncoded 09/24/18 14:55 BREADING ON FOOD-EYES SWELLED SHUT,THROAT SWELLING Past Med/Surg History Medical History Asthma (Chronic) Chronic lumbar pain (Chronic) Diabetes (Chronic) Dyslipidemia (Chronic) HTN (hypertension) (Chronic) 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 Landin ([facility]) Family History Father Stroke Other Family history non-contributory Social History marital status: Current Living Situation: Spouse current occupational status: retired Other Information That Helps Us Care for You: No Feels Safe at Home: Yes Safety Concerns: Feels Safe At This Time Smoking Status: Never smoker Hx Alcohol Use: Yes Alcohol type: other Alcohol Intake Frequency: holidays/ special occasions only Hx Substance Use: No Beliefs That Will Affect Care: None Preferred Language: Turkmen Communication Ability: Effective Systems Eng Required: No Review of Systems See HPI for pertinent positives & negatives. and A total of 10 systems reviewed and were otherwise negative Physical Exam Vital Signs Vital Signs - 24 hr 09/24/18 12:24 09/24/18 12:38 09/24/18 12:44 Temperature 36.7 C Temperature Source Oral Sepsis Recent Fever Within 48 Hours No Sepsis Action Taken by Nursing No Action Required Pulse Rate 81 68 68 Pulse Rate [Right Radial] Pulse Rhythm Regular Pulse Rhythm [Right Radial] Pulse Strength Normal Pulse Strength [Right Radial] Respiratory Rate 20 14 17 Respiratory Effort / Characteristics Non-Labored Respiratory Depth Normal Respiratory Pattern Regular Blood Pressure 191/94 H 179/95 H Blood Pressure [Right Arm] Blood Pressure Mean 126 123 Blood Pressure Mean [Right Arm] Blood Pressure Position [Right Arm] Pulse Oximetry 96 92 95 Oxygen Delivery Method Room Air 09/24/18 12:59 09/24/18 13:00 09/24/18 13:13 Temperature Temperature Source Sepsis Recent Fever Within 48 Hours Sepsis Action Taken by Nursing Pulse Rate 80 78 74 Pulse Rate [Right Radial] Pulse Rhythm Regular Pulse Rhythm [Right Radial] Pulse Strength Pulse Strength [Right Radial] Respiratory Rate 13 13 Respiratory Effort / Characteristics Respiratory Depth Respiratory Pattern Blood Pressure 135/99 Blood Pressure [Right Arm] Blood Pressure Mean 111 Blood Pressure Mean [Right Arm] Blood Pressure Position [Right Arm] Pulse Oximetry 97 96 95 Oxygen Delivery Method 09/24/18 13:30 09/24/18 13:31 09/24/18 14:00 Temperature Temperature Source Sepsis Recent Fever Within 48 Hours Sepsis Action Taken by Nursing Pulse Rate 85 82 78 Pulse Rate [Right Radial] Pulse Rhythm Pulse Rhythm [Right Radial] Pulse Strength Pulse Strength [Right Radial] Respiratory Rate 13 23 13 Respiratory Effort / Characteristics Respiratory Depth Respiratory Pattern Blood Pressure 137/86 Blood Pressure [Right Arm] Blood Pressure Mean 103 Blood Pressure Mean [Right Arm] Blood Pressure Position [Right Arm] Pulse Oximetry 95 95 95 Oxygen Delivery Method 09/24/18 14:30 09/24/18 15:00 09/24/18 15:31 Temperature Temperature Source Sepsis Recent Fever Within 48 Hours Sepsis Action Taken by Nursing Pulse Rate 94 H 69 112 H Pulse Rate [Right Radial] Pulse Rhythm Pulse Rhythm [Right Radial] Pulse Strength Pulse Strength [Right Radial] Respiratory Rate 19 17 19 Respiratory Effort / Characteristics Respiratory Depth Respiratory Pattern Blood Pressure Blood Pressure [Right Arm] Blood Pressure Mean Blood Pressure Mean [Right Arm] Blood Pressure Position [Right Arm] Pulse Oximetry 96 97 93 Oxygen Delivery Method 09/24/18 15:32 09/24/18 17:10 Temperature 36.9 C Temperature Source Oral Sepsis Recent Fever Within 48 Hours Sepsis Action Taken by Nursing Pulse Rate 68 Pulse Rate [Right Radial] 77 Pulse Rhythm Pulse Rhythm [Right Radial] Regular Pulse Strength Pulse Strength [Right Radial] Normal Respiratory Rate 13 16 Respiratory Effort / Characteristics Non-Labored Respiratory Depth Normal Respiratory Pattern Regular Blood Pressure 177/93 H Blood Pressure [Right Arm] 176/80 H Blood Pressure Mean 121 Blood Pressure Mean [Right Arm] 112 Blood Pressure Position [Right Arm] Sitting Pulse Oximetry 94 97 Oxygen Delivery Method Room Air Physical Exam GENERAL: She is oriented to person, place, and time. She appears well- developed and well-nourished. She does not appear distressed. HENT: Exam performed. -Head: Normocephalic and atraumatic. -Right Ear: External ear normal. No mastoid tenderness. -Left Ear: External ear normal. No mastoid tenderness. -Mouth/Throat: The oropharynx is clear and moist. No trismus in the jaw. No dental abscesses or uvula swelling. No oropharyngeal exudate or tonsillar abscesses. EYES: Conjunctivae and EOM are normal. Pupils are equal, round, and reactive to light. Right eye exhibits no discharge. Left eye exhibits no discharge. No scleral icterus. NECK: Normal range of motion. Neck supple. No JVD present. No spinous process tenderness present. No carotid bruit present. No rigidity. No tracheal deviation and normal range of motion present. No Brudzinski's sign and no Kernig 's sign noted. CV: Normal rate, regular rhythm, normal heart sounds and intact distal pulses. There is no peripheral edema. Palpable radial pulses bue. PULM/CHEST: Effort normal and breath sounds normal. No respiratory distress. No stridor. She has no wheezes. She has no rales. -Chest Wall: She exhibits no tenderness. ABD: The abdomen is soft. Bowel sounds are normal. She has no distension. No mass is present. There is no tenderness. There is no rebound, no guarding, no Reich's sign and no tenderness at McBurney's point. Rovsig negative MUSC/SKEL: Normal range of motion. There is no peripheral edema, tenderness or deformity. LYMPH: No cervical adenopathy. NEURO: She is alert and oriented to person, place, and time. She has normal strength. No cranial nerve deficit or sensory deficit. Coordination and gait normal. GCS eye subscore is 4. GCS verbal subscore is 5. GCS motor subscore is 6. Cerebellar tests wnl. SKIN: Skin is warm and dry. She is not diaphoretic. PSYCH: She has a normal mood and affect. Behavior is normal. Judgment and thought content normal. Course 1239: Past medical records reviewed. The patient was evaluated in room B8, and a complete history and physical examination were performed. 1434: I reevaluated the patient and her vitals are stable. I updated her on her test results and the treatment plan. She verbally agrees and understands. Her labs and imaging are within normal limits. The patient reports that her chest pain has improved slightly with sublingual Nitro. She states that has not had a storage engineer and has never had cardiac work up. I spoke to MICHAEL Jo about the patient. She will evaluate the patient for further management to rule out ACS. Patient will be admitted to Dr. Diaz service. Consultations Consultation #1: I spoke to FRANDY Jo about the patient. She will evaluate the patient for further management to rule out ACS. Time: 14:34 Administered Medications Acetaminophen (Tylenol) 650 mg PO Q4H PRN PRN Reason: Pain or Fever Stop: 10/24/18 16:33 Last Admin: 09/24/18 19:16 Dose: 650 mg Insulin Aspart (Novolog Flexpen) 0 units SC ACHS GUY Stop: 10/24/18 16:59 Last Admin: 09/24/18 17:34 Dose: Not Given Nitroglycerin (Nitrostat) 0.4 mg SL UD PRN PRN Reason: Chest Pain Stop: 10/24/18 12:40 Last Admin: 09/24/18 13:15 Dose: 0.4 mg Admin: 09/24/18 12:46 Dose: 0.4 mg Nitroglycerin (Nitro-Bid 2%) 0.5 inch EXT Q6H [facility] Stop: 10/24/18 18:59 Last Admin: 09/24/18 19:15 Dose: 0.5 inch Discontinued Medications Aspirin (Aspirin) 324 mg PO NOW STA Stop: 09/24/18 12:42 Last Admin: 09/24/18 12:45 Dose: 324 mg Sodium Chloride (Nss) 500 mls @ 999 mls/hr IV .Q31M GUY Stop: 09/24/18 13:15 Last Infusion: 09/24/18 13:18 Dose: 0 mls/hr Admin: 09/24/18 12:46 Dose: 999 mls/hr Medical Decision Making Medical Records Attestation: I reviewed the patient's medical records. Home Medications Current Medication List: was personally reviewed by me Laboratory Data Attestation: I reviewed the patient's lab results. Result diagrams: 09/24/18 12:30 09/24/18 12:30 Lab Results 09/24/18 09/24/18 09/24/18 Range/Units 12:30 12:30 12:30 WBC 9.80 (4.8-10.8) K/uL RBC 4.89 (4.2-5.4) M/uL Hgb 15.2 (12.0-16.0) g/dL Hct 44.4 (37-47) % MCV 90.8 (80-100) fL MCH 31.1 (25-34) pg MCHC 34.2 (32-36) g/dL RDW Std Deviation 40.5 (36.4-46.3) fL RDW Coeff of Ghassan 12.3 (11.5-14.5) % Plt Count 282 (130-400) K/uL MPV 9.0 (7.4-10.4) fL Immature Gran % (Auto) 0.4 % Neut % (Auto) 59.0 % Lymph % (Auto) 28.9 % [place] % (Auto) 7.9 % Eos % (Auto) 3.3 % Baso % (Auto) 0.5 % Immature Gran # (Auto) 0.04 H (0.00-0.02) K/uL Neut # (Auto) 5.79 (1.4-6.5) K/uL Lymph # (Auto) 2.83 (1.2-3.4) K/uL [place] # (Auto) 0.77 H (0.11-0.59) K/uL Eos # (Auto) 0.32 (0-0.5) K/uL Baso # (Auto) 0.05 (0-0.2) K/uL PT 10.3 (9.0-12.0) Seconds INR 1.0 (0.9-1.1) APTT 27.3 (21.0-31.0) Seconds PTT Ratio 1.1 D-Dimer 440 (0-500) ug/L FEU Sodium 136 (136-145) mmol/L Potassium 3.7 (3.5-5.1) mmol/L Chloride 100 (98-107) mmol/L Carbon Dioxide 28 (21-32) mmol/L Anion Gap 8.0 (3-11) BUN 13 (7-18) mg/dl Creatinine 0.74 (0.6-1.2) mg/dl Est Cr Clr Drug Dosing 68.8 ml/min Est GFR ( Amer) 95.1 Est GFR (Non-Af Amer) 82.1 BUN/Creatinine Ratio 18.0 (10-20) Glucose 153 H (70-99) mg/dl POC Glucose (70-99) Calcium 10.3 H (8.5-10.1) mg/dl Troponin I < 0.015 (0-0.045) ng/ml Lipase 150 (73-393) U/L 09/24/18 09/24/18 Range/Units 16:39 17:15 WBC (4.8-10.8) K/uL RBC (4.2-5.4) M/uL Hgb (12.0-16.0) g/dL Hct (37-47) % MCV (80-100) fL MCH (25-34) pg MCHC (32-36) g/dL RDW Std Deviation (36.4-46.3) fL RDW Coeff of Ghassan (11.5-14.5) % Plt Count (130-400) K/uL MPV (7.4-10.4) fL Immature Gran % (Auto) % Neut % (Auto) % Lymph % (Auto) % [place] % (Auto) % Eos % (Auto) % Baso % (Auto) % Immature Gran # (Auto) (0.00-0.02) K/uL Neut # (Auto) (1.4-6.5) K/uL Lymph # (Auto) (1.2-3.4) K/uL [place] # (Auto) (0.11-0.59) K/uL Eos # (Auto) (0-0.5) K/uL Baso # (Auto) (0-0.2) K/uL PT (9.0-12.0) Seconds INR (0.9-1.1) APTT (21.0-31.0) Seconds PTT Ratio D-Dimer (0-500) ug/L FEU Sodium (136-145) mmol/L Potassium (3.5-5.1) mmol/L Chloride (98-107) mmol/L Carbon Dioxide (21-32) mmol/L Anion Gap (3-11) BUN (7-18) mg/dl Creatinine (0.6-1.2) mg/dl Est Cr Clr Drug Dosing ml/min Est GFR ( Amer) Est GFR (Non-Af Amer) BUN/Creatinine Ratio (10-20) Glucose (70-99) mg/dl POC Glucose 132 H (70-99) Calcium (8.5-10.1) mg/dl Troponin I < 0.015 (0-0.045) ng/ml Lipase (73-393) U/L Imaging Data Radiologist's Impression: Radiology results as stated below per my review and the radiologist's interpretation: XR chest 2V routine CLINICAL HISTORY: Chest pain. COMPARISON STUDY: No previous studies for comparison. FINDINGS: Incidental note is made of cholecystectomy clips. Lung volumes are normal. There is no pneumothorax or pleural effusion. There is no consolidation or evidence for pulmonary edema. There is mild cardiomegaly. There is a suspected old right humeral neck deformity. IMPRESSION: No acute cardiopulmonary findings. Electronically signed by: Karlos Membreno M.D. 09/24/2018 2:39 PM ECG Data Attestation: I personally reviewed and interpreted this ECG as follows: Indication: chest pain Rate (beats per minute): 71 Rhythm: sinus with SA Findings: + other (HI interval 233, QRS and QT-c intervals are within normal limits) and + 1st degree AV block; no ST depression and no ST elevation Blood Pressure Blood Pressure Findings: Elevated blood pressure Blood Pressure Disposition: elevated BP felt to be situational MDM Narrative vitals are stable. I updated her on her test results and the treatment plan. She verbally agrees and understands. Her labs and imaging are within normal limits. The patient reports that her chest pain has improved slightly with sublingual Nitro. She states that has not had a storage engineer and has never had cardiac work up. I spoke to Susan Contreras PA-C [facility] about the patient. She will evaluate the patient for further management to rule out ACS. Patient will be admitted to Dr. Diaz service. Impression & Plan Chest pain Discharge Plan Visit Data *Final* Discharge Date/Time: 09/24/18 16:00 Chief Complaint: Chest Pain Stated Complaint: CHEST PAINS,PAIN DOWN L ARM ED Provider: Amador Swain Discharge Problem: Chest pain Patient Disposition: Admitted As Inpatient Discharge Instructions Interventions: ED Discharge Assessment Last Done: 09/24/18 16:00 The scribe's documentation has been prepared under my direction and personally reviewed by me in its entirety. I confirm that the note above accurately reflects all work, treatment, procedures, and medical decision making performed by me.
[2018-09-25] MEDS: NITROGLYCERIN 2% OINTMENT 30GM TUBE EXT SCH ×3 (01:33→14:25)
[2018-09-25] MEDS: NITROGLYCERIN SL 0.4 MG/TAB TAB SL PRN ×3 (02:47→03:13)
[2018-09-25] MEDS: ACETAMINOPHEN 325 MG TAB PO PRN ×2 (03:13→13:01)
[2018-09-25] MEDS ORDERED: LOSARTAN POTASSIUM 50 MG TAB PO SCH ×2 (03:30→09:00)
[2018-09-25] MEDS ORDERED: MoRPHine SULFATE 4 MG/ML 1 ML CARP\\VIAL IV PRN (03:39)
[2018-09-25] MEDS ORDERED: TRAMADOL HCL 50 MG TABLET PO PRN (03:39)
[2018-09-25 03:40] LABS: Basophils # (auto) 0.04 K/uL (0-0.2); Basophils % (auto) 0.5 %; Eosinophils # (auto) 0.27 K/uL (0-0.5); Eosinophils % (auto) 3.4 %; Hematocrit (blood only) 38.5 % (37-47); Hemoglobin 13.3 g/dL (12.0-16.0); Immature Granulocytes # (auto) 0.02 K/uL (0.00-0.02); Immature Granulocytes % (auto) 0.3 %; Lymphocytes # (auto) 3.43 K/uL (1.2-3.4); Mean Corpuscular Hgb Conc 34.5 g/dL (32-36); Mean Corpuscular Volume 90.4 fL (80-100); Mean Platelet Volume 8.6 fL (7.4-10.4); Monocytes # (auto) 0.73 K/uL (0.11-0.59); Monocytes % (auto) 9.1 %; Neutrophils # (auto) 3.49 K/uL (1.4-6.5); Neutrophils % (auto) 43.7 %; Platelet Count 261 K/uL (130-400); RDW Coefficient of Variation 12.4 % (11.5-14.5); RDW Standard Deviation 40.6 fL (36.4-46.3); Red Blood Count 4.26 M/uL (4.2-5.4); White Blood Count 7.98 K/uL (4.8-10.8)
[2018-09-25 03:57] LABS: BUN Creatinine Ratio 19.5 (10-20); Blood Urea Nitrogen 15 mg/dl (7-18); Calcium 8.9 mg/dl (8.5-10.1); Carbon Dioxide 28 mmol/L (21-32); Chloride 104 mmol/L (98-107); Creatinine Clr Calc Pharmacy 67.4 ml/min; Est GFR (African American) 92.1; Est GFR (Non-African American) 79.5; Glucose 144 mg/dl (70-99); Potassium 3.7 mmol/L (3.5-5.1); Sodium 137 mmol/L (136-145)
[2018-09-25 04:02] LABS: Troponin I < 0.015 ng/ml (0-0.045)
[2018-09-25] MEDS ORDERED: TRAMADOL HCL 50 MG TABLET ONE (04:17)
[2018-09-25 04:33] LABS: Partial Thromboplastin Ratio 1.1; Partial Thromboplastin Time 27.4 Seconds (21.0-31.0)
[2018-09-25 06:27] LABS: Estimated Average Glucose 157 mg/dl
[2018-09-25] MEDS: INSULIN ASPART 100 UNITS/ML 3 ML PEN SC SCH ×2 (07:44→13:00)
[2018-09-25] MEDS ORDERED: HEPARIN (PORCINE) 1000 UNIT/ML 10 ML (CATH LAB USE ONLY) ONE (08:55)
[2018-09-25] MEDS ORDERED: NiCARDipine HCL INJ 2.5 MG/ML 10 ML AMP ONE (08:55)
[2018-09-25] MEDS ORDERED: MIDAZOLAM HCL 1 MG/ML 2ML VIAL ONE (08:56)
[2018-09-25] MEDS ORDERED: fentaNYL citrate 100 MCG/2 ML VIAL ONE (08:56)
[2018-09-25] MEDS ORDERED: NITROGLYCERIN/D5W 100MCG/ML 20ML SYR ONE (08:56)
[2018-09-25] MEDS ORDERED: SODIUM CHLORIDE 0.9% 1000ML 1,000 ML IV SCH (09:00)
[2018-09-25] MEDS ORDERED: ASPIRIN 325 MG ECTAB PO SCH (09:00)
[2018-09-25] MEDS ORDERED: Heparin IV Low Dose *NO* Bolus SCH (10:00)
--- NOTE | 2018-09-25 10:12 | Cardiac Catheterization ---
Cardiac Cath Procedure: Brief Procedure Date September 25, 2018 Pre-Procedure Diagnosis Pre-Procedure Diagnosis: Angina AUC Score AUC Score: 8 Post-Procedure Diagnosis Post-Procedure Diagnosis: Severe CAD Procedure(s) Performed Procedure(s) Performed: Coronary Angiography Emergency Room Clerk Alfred Clarke MD Sales Vice President(s) Alex Silva Estimated Blood Loss Estimated Blood Loss: <15cc Medication(s) Medication(s): Fentanyl (12.5 mcg IV), Heparin (5000 units IV), Lidocaine 1%, Nicardipine (250 mcg intra-arterial after sheath insertion and prior to removal) , Nitroglycerin (250 mcg intra-arterial prior to sheath removal) and Versed (1 mg IV) Preliminary Findings Right dominant coronary anatomy with heavy calcification all coronary structures Severe three-vessel disease with hazy 90% stenosis proximal left anterior descending, ulcerated 80-90% stenosis of the proximal left circumflex, 70% bifurcation lesion proximal third right coronary artery, 80% PDA Preserved LV function by echocardiogram Recommendations Recommendations: CABG Specimens Specimens: None Fluids (cc crystalloids) Fluids (cc crystalloids): 74 Anesthesia Start time 0920, End time 09 Procedural Complication(s) None Disposition PCU
[2018-09-25] MEDS ORDERED: METOPROLOL TARTRATE 25 MG TAB PO SCH (10:15)
[2018-09-25] MEDS ORDERED: HEPARIN LOW DOSE DEXTROSE 25,000 UNITS/500 ML IV SCH (10:45)
--- NOTE | 2018-09-25 11:07 | Cardiology Progress Note ---
Date of Service September 25, 2018 Assessment & Plan (1) Crescendo angina: Cardiac catheterization today identified severe three-vessel disease of heavy calcification in the coronaries. Surgical targets remain present patient currently stable without pain Plan initiate IV heparin continue topical nitrates losartan oral beta-janice Arrangements to be made for transfer to [facility] for surgical revascularization. Anticipating surgery next week with transfer sometime over the weekend as bed available. Discussion made with [facility] transfer center, Dr. San cardiovascular surgery Physical Exam 2 Vital Signs (Past 24 Hours): Last Vital Signs Temp 36.6 C 09/25/18 10:45 Pulse 71 09/25/18 10:45 Resp 20 09/25/18 10:45 BP 133/76 09/25/18 10:45 Pulse Ox 98 09/25/18 10:45 Constitutional: WD/WN, vitals as above Eyes: + periorbital abnormality (Erythema) ENMT: external ear and nose normal, oropharynx normal Neck: trachea midline, no thyromegaly Respiratory: normal respiratory effort, lungs clear to auscultation Cardiovascular: RRR, no murmur, no edema Heart Sounds: no gallop Palpation: normal PMI Vessels: femoral pulses present; no carotid bruit and no abdominal aortic bruit Gastrointestinal (Abdomen): normal bowel sounds, soft, nontender, no hepatosplenomegaly Musculoskeletal: no cyanosis or clubbing, extremities motor strength 5/5 Neurologic: PERRL, EOMI, accommodation nl, no face palsy, no dysarthria Results & Data Laboratory Results 09/25/18 09/25/18 09/25/18 Range/Units 07:19 03:31 03:31 WBC (4.8-10.8) K/uL RBC (4.2-5.4) M/uL Hgb (12.0-16.0) g/dL Hct (37-47) % MCV (80-100) fL MCH (25-34) pg MCHC (32-36) g/dL RDW Std Deviation (36.4-46.3) fL RDW Coeff of Ghassan (11.5-14.5) % Plt Count (130-400) K/uL MPV (7.4-10.4) fL Immature Gran % (Auto) % Neut % (Auto) % Lymph % (Auto) % [place] % (Auto) % Eos % (Auto) % Baso % (Auto) % Immature Gran # (Auto) (0.00-0.02) K/uL Neut # (Auto) (1.4-6.5) K/uL Lymph # (Auto) (1.2-3.4) K/uL [place] # (Auto) (0.11-0.59) K/uL Eos # (Auto) (0-0.5) K/uL Baso # (Auto) (0-0.2) K/uL ESR (0-21) mm/hr PT (9.0-12.0) Seconds INR (0.9-1.1) APTT (21.0-31.0) Seconds PTT Ratio D-Dimer (0-500) ug/L FEU Sodium 137 (136-145) mmol/L Potassium 3.7 (3.5-5.1) mmol/L Chloride 104 (98-107) mmol/L Carbon Dioxide 28 (21-32) mmol/L Anion Gap 5.0 (3-11) BUN 15 (7-18) mg/dl Creatinine 0.76 (0.6-1.2) mg/dl Est Cr Clr Drug Dosing 67.4 ml/min Est GFR ( Amer) 92.1 Est GFR (Non-Af Amer) 79.5 BUN/Creatinine Ratio 19.5 (10-20) Glucose 144 H (70-99) mg/dl POC Glucose 143 H (70-99) Estimat Average Glucose 157 mg/dl Hemoglobin A1c 7.1 H (4.5-5.6) % Calcium 8.9 (8.5-10.1) mg/dl Magnesium 2.0 (1.8-2.4) mg/dl Troponin I < 0.015 (0-0.045) ng/ml Lipase (73-393) U/L 09/25/18 09/25/18 09/25/18 Range/Units 03:31 03:31 03:31 WBC 7.98 (4.8-10.8) K/uL RBC 4.26 (4.2-5.4) M/uL Hgb 13.3 (12.0-16.0) g/dL Hct 38.5 (37-47) % MCV 90.4 (80-100) fL MCH 31.2 (25-34) pg MCHC 34.5 (32-36) g/dL RDW Std Deviation 40.6 (36.4-46.3) fL RDW Coeff of Ghassan 12.4 (11.5-14.5) % Plt Count 261 (130-400) K/uL MPV 8.6 (7.4-10.4) fL Immature Gran % (Auto) 0.3 % Neut % (Auto) 43.7 % Lymph % (Auto) 43.0 % [place] % (Auto) 9.1 % Eos % (Auto) 3.4 % Baso % (Auto) 0.5 % Immature Gran # (Auto) 0.02 (0.00-0.02) K/uL Neut # (Auto) 3.49 (1.4-6.5) K/uL Lymph # (Auto) 3.43 H (1.2-3.4) K/uL [place] # (Auto) 0.73 H (0.11-0.59) K/uL Eos # (Auto) 0.27 (0-0.5) K/uL Baso # (Auto) 0.04 (0-0.2) K/uL ESR 2 (0-21) mm/hr PT (9.0-12.0) Seconds INR (0.9-1.1) APTT 27.4 (21.0-31.0) Seconds PTT Ratio 1.1 D-Dimer (0-500) ug/L FEU Sodium (136-145) mmol/L Potassium (3.5-5.1) mmol/L Chloride (98-107) mmol/L Carbon Dioxide (21-32) mmol/L Anion Gap (3-11) BUN (7-18) mg/dl Creatinine (0.6-1.2) mg/dl Est Cr Clr Drug Dosing ml/min Est GFR ( Amer) Est GFR (Non-Af Amer) BUN/Creatinine Ratio (10-20) Glucose (70-99) mg/dl POC Glucose (70-99) Estimat Average Glucose mg/dl Hemoglobin A1c (4.5-5.6) % Calcium (8.5-10.1) mg/dl Magnesium (1.8-2.4) mg/dl Troponin I (0-0.045) ng/ml Lipase (73-393) U/L 09/24/18 09/24/18 09/24/18 Range/Units 23:00 20:36 17:15 WBC (4.8-10.8) K/uL RBC (4.2-5.4) M/uL Hgb (12.0-16.0) g/dL Hct (37-47) % MCV (80-100) fL MCH (25-34) pg MCHC (32-36) g/dL RDW Std Deviation (36.4-46.3) fL RDW Coeff of Ghassan (11.5-14.5) % Plt Count (130-400) K/uL MPV (7.4-10.4) fL Immature Gran % (Auto) % Neut % (Auto) % Lymph % (Auto) % [place] % (Auto) % Eos % (Auto) % Baso % (Auto) % Immature Gran # (Auto) (0.00-0.02) K/uL Neut # (Auto) (1.4-6.5) K/uL Lymph # (Auto) (1.2-3.4) K/uL [place] # (Auto) (0.11-0.59) K/uL Eos # (Auto) (0-0.5) K/uL Baso # (Auto) (0-0.2) K/uL ESR (0-21) mm/hr PT (9.0-12.0) Seconds INR (0.9-1.1) APTT (21.0-31.0) Seconds PTT Ratio D-Dimer (0-500) ug/L FEU Sodium (136-145) mmol/L Potassium (3.5-5.1) mmol/L Chloride (98-107) mmol/L Carbon Dioxide (21-32) mmol/L Anion Gap (3-11) BUN (7-18) mg/dl Creatinine (0.6-1.2) mg/dl Est Cr Clr Drug Dosing ml/min Est GFR ( Amer) Est GFR (Non-Af Amer) BUN/Creatinine Ratio (10-20) Glucose (70-99) mg/dl POC Glucose 127 H (70-99) Estimat Average Glucose mg/dl Hemoglobin A1c (4.5-5.6) % Calcium (8.5-10.1) mg/dl Magnesium (1.8-2.4) mg/dl Troponin I < 0.015 < 0.015 (0-0.045) ng/ml Lipase (73-393) U/L 09/24/18 09/24/18 09/24/18 Range/Units 16:39 12:30 12:30 WBC (4.8-10.8) K/uL RBC (4.2-5.4) M/uL Hgb (12.0-16.0) g/dL Hct (37-47) % MCV (80-100) fL MCH (25-34) pg MCHC (32-36) g/dL RDW Std Deviation (36.4-46.3) fL RDW Coeff of Ghassan (11.5-14.5) % Plt Count (130-400) K/uL MPV (7.4-10.4) fL Immature Gran % (Auto) % Neut % (Auto) % Lymph % (Auto) % [place] % (Auto) % Eos % (Auto) % Baso % (Auto) % Immature Gran # (Auto) (0.00-0.02) K/uL Neut # (Auto) (1.4-6.5) K/uL Lymph # (Auto) (1.2-3.4) K/uL [place] # (Auto) (0.11-0.59) K/uL Eos # (Auto) (0-0.5) K/uL Baso # (Auto) (0-0.2) K/uL ESR (0-21) mm/hr PT 10.3 (9.0-12.0) Seconds INR 1.0 (0.9-1.1) APTT 27.3 (21.0-31.0) Seconds PTT Ratio 1.1 D-Dimer 440 (0-500) ug/L FEU Sodium 136 (136-145) mmol/L Potassium 3.7 (3.5-5.1) mmol/L Chloride 100 (98-107) mmol/L Carbon Dioxide 28 (21-32) mmol/L Anion Gap 8.0 (3-11) BUN 13 (7-18) mg/dl Creatinine 0.74 (0.6-1.2) mg/dl Est Cr Clr Drug Dosing 68.8 ml/min Est GFR ( Amer) 95.1 Est GFR (Non-Af Amer) 82.1 BUN/Creatinine Ratio 18.0 (10-20) Glucose 153 H (70-99) mg/dl POC Glucose 132 H (70-99) Estimat Average Glucose mg/dl Hemoglobin A1c (4.5-5.6) % Calcium 10.3 H (8.5-10.1) mg/dl Magnesium (1.8-2.4) mg/dl Troponin I < 0.015 (0-0.045) ng/ml Lipase 150 (73-393) U/L 09/24/18 Range/Units 12:30 WBC 9.80 (4.8-10.8) K/uL RBC 4.89 (4.2-5.4) M/uL Hgb 15.2 (12.0-16.0) g/dL Hct 44.4 (37-47) % MCV 90.8 (80-100) fL MCH 31.1 (25-34) pg MCHC 34.2 (32-36) g/dL RDW Std Deviation 40.5 (36.4-46.3) fL RDW Coeff of Ghassan 12.3 (11.5-14.5) % Plt Count 282 (130-400) K/uL MPV 9.0 (7.4-10.4) fL Immature Gran % (Auto) 0.4 % Neut % (Auto) 59.0 % Lymph % (Auto) 28.9 % [place] % (Auto) 7.9 % Eos % (Auto) 3.3 % Baso % (Auto) 0.5 % Immature Gran # (Auto) 0.04 H (0.00-0.02) K/uL Neut # (Auto) 5.79 (1.4-6.5) K/uL Lymph # (Auto) 2.83 (1.2-3.4) K/uL [place] # (Auto) 0.77 H (0.11-0.59) K/uL Eos # (Auto) 0.32 (0-0.5) K/uL Baso # (Auto) 0.05 (0-0.2) K/uL ESR (0-21) mm/hr PT (9.0-12.0) Seconds INR (0.9-1.1) APTT (21.0-31.0) Seconds PTT Ratio D-Dimer (0-500) ug/L FEU Sodium (136-145) mmol/L Potassium (3.5-5.1) mmol/L Chloride (98-107) mmol/L Carbon Dioxide (21-32) mmol/L Anion Gap (3-11) BUN (7-18) mg/dl Creatinine (0.6-1.2) mg/dl Est Cr Clr Drug Dosing ml/min Est GFR ( Amer) Est GFR (Non-Af Amer) BUN/Creatinine Ratio (10-20) Glucose (70-99) mg/dl POC Glucose (70-99) Estimat Average Glucose mg/dl Hemoglobin A1c (4.5-5.6) % Calcium (8.5-10.1) mg/dl Magnesium (1.8-2.4) mg/dl Troponin I (0-0.045) ng/ml Lipase (73-393) U/L Diagnostic Findings Preliminary Findings coronary angiography Right dominant coronary anatomy with heavy calcification all coronary structures Severe three-vessel disease with hazy 90% stenosis proximal left anterior descending, ulcerated 80-90% stenosis of the proximal left circumflex, 70% bifurcation lesion proximal third right coronary artery, 80% PDA Preserved LV function by echocardiogram
[2018-09-25] MEDS: FLUTICASONE/SALMETEROL 250/50 (ADVAIR) 14 PUFF/1 INHALER INH SCH (11:13)
[2018-09-25] MEDS: TRIAMCINOLONE ACET NASAL SPRAY 10.8ML BTL SCH (11:14)
--- NOTE | 2018-09-25 11:30 | Cardiac Catheterization ---
Cardiac Cath Procedure Full Procedure Date September 25, 2018 Pre-Procedure Diagnosis Pre-Procedure Diagnosis: Angina AUC Score AUC Score: 8 Post-Procedure Diagnosis Post-Procedure Diagnosis: Severe CAD Procedure(s) Performed Procedure(s) Performed: Coronary Angiography Gas Welding Equipment Mechanic Alfred Clarke MD Vp Site(s) [facility] Estimated Blood Loss Estimated Blood Loss: <15cc Medication(s) Medication(s): Fentanyl (12.5 mcg IV), Heparin (5000 units IV), Lidocaine 1%, Nicardipine (250 mcg intra-arterial after sheath insertion and prior to removal) , Nitroglycerin (250 mcg intra-arterial prior to sheath removal) and Versed (1 mg IV) Summary of Findings Right dominant coronary anatomy with heavy calcification all coronary structures Severe three-vessel disease with hazy 90% stenosis proximal left anterior descending, ulcerated 80-90% stenosis of the proximal left circumflex, 70% bifurcation lesion proximal third right coronary artery, 80% PDA Preserved LV function by echocardiogram Hemodynamics Rest Ao:: 141/65/97 Final Ao: 148/65/101 LV: NA Recommendations Recommendations: CABG Specimens Specimens: None Radiation Exposure (mGy) 1642 Contrast (mls) 83 Fluids (cc crystalloids) Fluids (cc crystalloids): 74 Anesthesia Start time 0920, End time 0945 Procedural Complication(s) None Disposition PCU ACC Data: Reports Developer Cardiac Status Clinical evaluation leading to the procedure CAD Presenation: Unstable angina Anginal Classification: CCS IV Heart Failure: No Cardiogenic Shock within 24 Hours: No Imaging Studies Past 6 Months: Yes Stress Studies Past 6 Months: No Standard Exercise Test: No Stress Echocardiogram: No Stress Testing w/SPECT MPI: No Cardiac CTA: No Coronary Anatomy Dominant: Right Left Main (% Stenosis): Mid (20% with heavy calcification) LAD (% Stenosis): Proximal (Hazy 90% entire proximal and mid LAD calcified), Mid (60) and Distal (70) D1 (% Stenosis): Normal Circumflex (% Stenosis): Proximal OM1 (% Stenosis): Proximal (60) and Mid (60) RCA (% Stenosis): Mid (Eccentric 70%) R PDA (% Stenosis): Proximal Diagnostic Physicians Name: Alfred Clarke MD Status: Urgent Closure Device Percutaneous Entry Location: Radial Closure Device: Radial Band Recommendations: CABG
[2018-09-25] MEDS: HEPARIN SOD 5,000 UNIT/0.5 ML VIAL SQ SCH (11:45)
--- NOTE | 2018-09-25 13:22 | Hospitalist Progress Note ---
Date of Service September 25, 2018 Assessment & Plan (1) Ilyacendmax angina: S/P Cardiac Cath suggestive of severe three-vessel disease of heavy calcification in the coronaries. Appreciate Cardiology help Started on IV Heparin Continue topical nitrates, losartan, beta-janice Patient needs CABG Patient is accepted by CT surgeon at [facility] for further management Asthma: Stable No signs of exacerbation continue home inhalers Dyslipidemia: Continue statin H/O DVT: Was on aspirin 325mg daily Currently on IV heparin HTN Continue losartan added Metoprolol DM II: A1C: 7.1 Hold home diabetic meds Continue ISS Code Status: Full Code DVT Px: on IV Heparin Disposition: Plan to transfer to [facility] Today Subjective Patient is seen and examined at bedside Had Cardiac cath today suggestive of severe three-vessel disease of heavy calcification in the coronaries Accepted at [facility] for further management Currently denies any chest pain, dyspnea, nausea Has dizziness intermittently No other complaints Physical Exam 2 Vital Signs (Past 24 Hours): Last Vital Signs Temp 36.7 C 09/25/18 11:15 Pulse 71 09/25/18 11:15 Resp 18 09/25/18 11:15 BP 156/78 H 09/25/18 11:15 Pulse Ox 94 09/25/18 11:15 Physical Exam: Physical Exam: Vitals signs as noted above General Appearance:Moderately built and nourished, no apparent distress Head: normocephalic, Atraumatic Eyes: normal inspection, EOMI Neck: supple, Trachea midline Respiratory/Chest: Normal breath sounds, CTA Cardiovascular: S1, S2, No murmur Abdomen/GI:Soft, Non tender, Bowel sounds present Extremities/Musculoskelatal:normal inspection, no edema Neurologic/Psych:AAOX3, grossly no focal neurological deficits Skin: normal color, warm Results & Data Laboratory Results Short CBC 09/25/18 Range/Units 03:31 WBC 7.98 (4.8-10.8) K/uL Hgb 13.3 (12.0-16.0) g/dL Hct 38.5 (37-47) % Plt Count 261 (130-400) K/uL BMP 09/25/18 03:31 Sodium 137 Potassium 3.7 Chloride 104 Carbon Dioxide 28 BUN 15 Creatinine 0.76 Glucose 144 H Calcium 8.9 Cardiac Enzymes 09/24/18 09/24/18 09/25/18 Range/Units 17:15 23:00 03:31 Troponin I < 0.015 < 0.015 < 0.015 (0-0.045) ng/ml Diagnostic Findings CXR: No acute cardiopulmonary findings.
--- NOTE | 2018-09-25 13:34 | Discharge Summary ---
Date of Service September 25, 2018 Admission HPI Per Admitting Provider This is a 72 y/o female with a history of HTN, dyslipidemia and DM who presents to the ED today with left-sided chest pain x 3-4 days, worse with exertion. Pt reports she started with left chest pressure and pain 3-4 days ago - at times the pain radiates into her left arm and left neck although not constantly. The pain is worse with exertion although incompletely relieved by rest. She does have associated dyspnea on exertion but no pain with inspiration, wheezing, orthopnea or PND. No palpitations or syncope. Denies peripheral edema. She denies ever have pain like this previously. No prior cardiac history or work- up that patient can recall. Her symptoms have been worsening in severity and she now has associated weakness, fatigue and dizziness so she came for evaluation in the ED. She reports a history of DVT in the late that was attributed to Premarin use - initially treated with warfarin but now maintained on aspirin 325 mg daily. Denies history of PE. No family history of cardiac disease although father of a "massive stroke" in his late 60s. Pt reports her diabetes is well-controlled on Trulicty and metformin although unsure when/ what her last A1c was. She attempts to remain active and exercise regularly although admits she has not done as well with this over the holidays. Admission Exam Per Admitting Provider Constitutional: WD/WN, vitals as above no acute distress Eyes: PERRL, conjunctivae normal, anicteric sclerae ENMT: external ear and nose normal, oropharynx normal Neck: trachea midline Respiratory: normal respiratory effort, lungs clear to auscultation no labored breathing and does not use accessory muscles Auscultation: no rales, no rhonchi and no wheezes Cardiovascular: Rate/Rhythm: regular rate Heart Sounds: no gallop, no murmur and no cardiac rub Vessels: no JVD Extremities: normal capillary refill ; no calf tenderness and no edema Gastrointestinal (Abdomen): normal bowel sounds, soft, nontender, no hepatosplenomegaly Musculoskeletal: no cyanosis or clubbing, extremities motor strength 5/5 Skin: no rashes, warm and dry Psychiatric: A+Ox3, euthymic affect Principal Diagnosis Discharge Information Discharge Diagnosis Crescendo angina Severe Coronary artery disease Discharge Goals Decrease discomfort,Improve disease control, Improve function Discharge Activity Limitations Per instructions/follow-up Discharge Data Allergies Allergy/AdvReac Type Severity Reaction Status Date / Time Penicillins Allergy Intermediate HIVES Verified 09/24/18 14:55 atorvastatin AdvReac Mild MUSCLE Verified 09/24/18 14:55 CRAMPS,ACHES Food Allergy Unknown SEASONED Uncoded 09/24/18 14:55 BREADING ON FOOD-EYES SWELLED SHUT,THROAT SWELLING Consultations 09/24/18 14:37 ED Decision to Admit Stat 09/24/18 16:34 Consult Cardiology Routine Procedures Performed CXR: No acute cardiopulmonary findings. Operation Date: 09/25/18 08:00 Actual Procedures p Cath, Coronaries ONLY (no LV)(Not Applicable) - Alfred Clarke MD s Cineradiography w/Routine Exam(Not Applicable) - Alfred Clarke MD Cardiac Catheterization: Procedure Date September 25, 2018 Pre-Procedure Diagnosis Pre-Procedure Diagnosis: Angina AUC Score AUC Score: 8 Post-Procedure Diagnosis Post-Procedure Diagnosis: Severe CAD Procedure(s) Performed Procedure(s) Performed: Coronary Angiography Metal Patternmaker Alfred Clarke MD International Marketing Intern(s) [facility] Estimated Blood Loss Estimated Blood Loss: <15cc Medication(s) Medication(s): Fentanyl (12.5 mcg IV), Heparin (5000 units IV), Lidocaine 1%, Nicardipine (250 mcg intra-arterial after sheath insertion and prior to removal) , Nitroglycerin (250 mcg intra-arterial prior to sheath removal) and Versed (1 mg IV) Summary of Findings Right dominant coronary anatomy with heavy calcification all coronary structures Severe three-vessel disease with hazy 90% stenosis proximal left anterior descending, ulcerated 80-90% stenosis of the proximal left circumflex, 70% bifurcation lesion proximal third right coronary artery, 80% PDA Preserved LV function by echocardiogram Hemodynamics Rest Ao:: 141/65/97 Final Ao: 148/65/101 LV: NA Recommendations Recommendations: CABG Specimens Specimens: None Radiation Exposure (mGy) 1642 Contrast (mls) 83 Fluids (cc crystalloids) Fluids (cc crystalloids): 74 Anesthesia Start time 0920, End time 0945 Procedural Complication(s) None Disposition PCU ACC Data: Getter Filler Cardiac Status Clinical evaluation leading to the procedure CAD Presenation: Unstable angina Anginal Classification: CCS IV Heart Failure: No Cardiogenic Shock within 24 Hours: No Imaging Studies Past 6 Months: Yes Stress Studies Past 6 Months: No Standard Exercise Test: No Stress Echocardiogram: No Stress Testing w/SPECT MPI: No Cardiac CTA: No Coronary Anatomy Dominant: Right Left Main (% Stenosis): Mid (20% with heavy calcification) LAD (% Stenosis): Proximal (Hazy 90% entire proximal and mid LAD calcified), Mid (60) and Distal (70) D1 (% Stenosis): Normal Circumflex (% Stenosis): Proximal OM1 (% Stenosis): Proximal (60) and Mid (60) RCA (% Stenosis): Mid (Eccentric 70%) R PDA (% Stenosis): Proximal Diagnostic Physicians Name: Alfred Clarke MD Status: Urgent Closure Device Percutaneous Entry Location: Radial Closure Device: Radial Band Recommendations: CABG Ordered Studies 09/25/18 07:48 CL Cath Imgs for PACS use only Routine Hospital Course (1) Crescendo angina: S/P Cardiac Cath suggestive of severe three-vessel disease of heavy calcification in the coronaries. Appreciate Cardiology help Started on IV Heparin Continue topical nitrates, losartan, beta-janice Patient needs CABG Patient is accepted by CT surgeon at [facility] for further management Asthma: Stable No signs of exacerbation continue home inhalers Dyslipidemia: Continue statin H/O DVT: Was on aspirin 325mg daily Currently on IV heparin HTN Continue losartan added Metoprolol DM II: A1C: 7.1 Hold home diabetic meds Continue ISS Code Status: Full Code DVT Px: on IV Heparin Disposition: Plan to transfer to [facility] Today Total Time Total Time Spent Total Time Spent (In Minutes): 45 minutes Total Time Includes: Examination of the Patient, Discharge Planning, Medication Reconciliation, Communication With Other Providers and Other Discharge Plan Discharge Items Patient Disposition: Transfer Acute Care Hospital Reason For Visit: CHEST PAIN Discharge Diagnosis: Crescendo angina Severe Coronary artery disease Discharge Goals: Decrease discomfort, Improve disease control and Improve function Activity: Per 'Additional Instructions' section Lifting: Wait until after follow-up appointment Exercise/Sports: Wait until after follow-up appointment Non-emergency contact: Primary Care Provider and Metal Patternmaker Call non-emergency contact if: you have any medication questions, your symptoms worsen, your pain is not controlled, your pain is worsening and your pain is unusual for you Diet: Carb Consistent or DM2 and Heart Healthy Addtl Provider Instructions: Follow up with CT surgeon at [facility] for further management Continue IV Heparin until further recommendations from Follow up with your Primary Care Physician after being discharged from [facility] Seek immediate medical attention if your symptoms reoccur or worsen Prescriptions: New nitroglycerin [Nitro-Bid] 2 % Ointment 0.5 inch EXT Q6H Qty: 30 RF: 0 metoprolol tartrate 25 mg Tablet 12.5 mg PO BID 30 Days Qty: 30 RF: 0 nitroglycerin [Nitrostat] 0.4 mg Tablet, Sublingual 0.4 mg Sublingual UD PRN (Reason: chest pain) 30 Days Qty: 60 RF: 0 Continue losartan 50 mg tablet 50 mg PO QAM RF: 0 metformin 500 mg tablet 1,000 mg PO BID RF: 0 fluticasone-salmeterol [Advair Diskus] 250-50 mcg/dose blister with device 2 puff Inhalation BID RF: 0 aspirin 325 mg Tablet 325 mg PO QAM RF: 0 triamcinolone acetonide [Nasacort] 55 mcg Aerosol,[place] 2 spray INTRANASAL BID RF: 0 loratadine-pseudoephedrine [Claritin-D 12 Hour] 5-120 mg Tablet Extended Release 12 Hr 1 tab PO Q12H RF: 0 albuterol sulfate [Ventolin HFA] 90 mcg/actuation Hfa Aerosol Inhaler 2 puff INHALATION Q6H PRN (Reason: Shortness Of Breath Or Wheezing) RF: 0 multivitamin Capsule 1 cap PO QAM RF: 0 calcium carbonate-vitamin D3 [Os-Jaden 500 + D3] 500 mg(1,250mg) -200 unit Tablet 1 tab PO BID RF: 0 vitamins A,C,T-ydsx-ieceij [PreserVision AREDS] 14,320-226-200 grvs-xh-yhox Capsule 1 cap PO BID RF: 0 omega 9-srv-dfx-fish oil [Fish Oil] 1,000 mg (120 mg-180 mg) Capsule 1 cap PO QAM RF: 0 pitavastatin calcium [Livalo] 1 mg tablet 1 mg PO HS RF: 0 dulaglutide [Trulicity] 1.5 mg/0.5 mL pen injector 1.5 mg subcut WK RF: 0 Discontinued naproxen sodium [Aleve] 220 mg Capsule 440 mg PO QAM PRN (Reason: Pain) RF: 0 Stand-Alone Forms: [facility] Discharge Orders: Discharge Order (Routine); Ordered 09/25/18 Ordered By: Bogdan Espinal Admission Data Admit Date/Time: 09/24/18 15:28 Attending Provider: Bogdan Espinal Admit Provider: Rajesh Diaz Primary Care Provider: Stacy Rai Other Providers: Rajesh Diaz ; Alfred Clarke Service: Telemetry Other Pending Studies at Discharge: No
== END 2018-09-25 14:45 | disposition short-term general hospital (02) ==
LOC: 2S 12:15 → ED 12:15 → 2S 16:00
PROC: CLB.CCO (2018-09-25 08:00)